=== PATIENT | male | born 1960 | race African-American/Black ===

== ENCOUNTER 2016-08-14 17:50 | Emergency (ER) | payer OTHER ==
[~2016-08-14] VITALS: Ht 188 cm; Wt 83.9 kg
[~2016-08-14 17:50] MED LIST: PERMETHRIN60 GM TOPIC
[2016-08-14 17:59] VITALS: BP 106/74
[2016-08-14] MEDS ORDERED: Lidocaine 1% 10mg/ml/Epi 0.005mg/ml 30ml vial INJ ONE (18:30)
[2016-08-14] MEDS ORDERED: Lidocaine 1% Plain 30 ml INJ ONE (18:30)
[2016-08-14 19:59] VITALS: BP 112/78
[2016-08-14] MEDS ORDERED: Bacitracin Oint UD TOPIC ONE (20:30)
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
[2016-08-14] MEDS ORDERED: BACITRACIN-P28.35 GM TP (20:42)
[2016-08-14] MEDS ORDERED: CEPHALEXIN500 MG ORAL (20:42)
[2016-08-14 21:30] VITALS: BP 137/75
--- NOTE | 2016-08-15 09:46 | Diagnostic Imaging Report ---
Indications: Right elbow pain Technique: 3 views right elbow. Findings: Comparison: None Soft tissues over the dorsum of the proximal ulna are swollen with gas filled linear defects. No fracture, dislocation, joint space widening or effusion , soft tissue foreign body, or other acute changes are identified. IMPRESSION: Dorsal soft tissue laceration No other evidence of acute injury.
== END 2016-08-14 21:30 | disposition home or self-care (01) ==
LOC: EDBD 17:50 → EMR 18:33
DX: S51.012A Laceration without foreign body of left elbow, initial encounter (principal); X58.XXXA Exposure to other specified factors, initial encounter; Y93.9 Activity, unspecified; Y92.811 Bus as the place of occurrence of the external cause; M25.521 Pain in right elbow; Z88.0 Allergy status to penicillin; Z88.8 Allergy status to other drugs, medicaments and biological substances; J44.9 Chronic obstructive pulmonary disease, unspecified; E11.9 Type 2 diabetes mellitus without complications
CPT/HCPCS: 12002; 29125; 29240; 73080; 99284; Z7502

== ENCOUNTER 2016-08-28 08:48 | Emergency (ER) | payer OTHER ==
[~2016-08-28] VITALS: Ht 185.4 cm; Wt 81.6 kg
[~2016-08-28 08:48] MED LIST changes: +BACITRACIN-P28.35 GM TP; +CEPHALEXIN500 MG ORAL
[2016-08-28] MEDS ORDERED: PERMETHRIN60 GM TOPIC (09:40)
[2016-08-28] MEDS ORDERED: BACTRIM DS TAB1 EAC1 ORAL (09:40)
--- NOTE | 2016-08-28 09:59 | Emergency Room Report ---
History of Present Illness General Chief Complaint: Wound Recheck/Suture Removal Source: Patient Present Illness HPI [id number] walk-in with request for staple removal, concern for infection to right elbow. Fever/chills recently. Swelling of elbow. Denies pus drainage. Also c/ o rash to upper/lower extremities, torso, back after "friend gave me a blanket recently." Took all the Abx was given after discharge from here 2 weeks prior Had 22 chiara placed per EMR Allergies: Coded Allergies: TETRACYCLINE (Verified Allergy, Unknown, 01/16/16) Uncoded Allergies: PENECILLIN (Allergy, Unknown, 01/16/16) Patient History Past Medical History: see triage record, old chart reviewed Past Surgical History: none Pertinent Family History: none Social History: Denies: alcohol use, drug use, smoking Immunizations: UTD Reviewed Nursing Documentation: PMH: Agreed, PSxH: Agreed Nursing Documentation-PMH Past Medical History: No History, Except For Hx COPD: Yes Hx Diabetes: Yes Review of Systems All Other Systems: negative except mentioned in HPI Physical Exam Vital Signs Date Time Temp Pulse Resp B/P Pulse Ox O2 Delivery O2 Flow Rate FiO2 08/28/16 08:55 98.1 64 16 145/83 99 Sp02 EP Interpretation: reviewed, normal General Appearance: normal inspection, well appearing, no apparent distress, alert, GCS 15, non-toxic Head: normocephalic, atraumatic Eyes: bilateral eye EOMI, bilateral eye PERRL ENT: normal ENT inspection, hearing grossly normal, normal voice Neck: normal inspection, full range of motion, supple, no bony tend Respiratory: normal inspection, lungs clear, normal breath sounds, no respiratory distress, no retraction, no wheezing Cardiovascular #1: regular rate, rhythm, no edema Gastrointestinal: normal inspection, normal bowel sounds, non tender, soft, no guarding, no hernia Genitourinary: no CVA tenderness Musculoskeletal: normal inspection, back normal, normal range of motion, Pauline' s Sign negative, other - Right elbow: 19 chiara visualized. V-shaped laceration in various stages of healing. Posterior aspect with only minor superficial wound dehiscence. Proximal and middle aspect over the joint with significant dehiscence. No pus drainage. Minor ttp. Medial aspect of elbow with swelling. Neurologic: normal inspection, alert, oriented x3, responsive, negative assembler III-XII nml as tested, motor strength/tone normal, speech normal Psychiatric: normal inspection, judgement/insight normal, mood/affect normal Skin: normal inspection, normal color, no rash, other - multiple areas of papules, some clustered to bilateral extremities, back, chest. No blisters or vesicles. Procedures Splinting Splinting : Consent: Verbal Pre-Made Type: velcro Hand-Made Type: plaster Splint: Posterior long right elbow Pre-Proc Neuro Vasc Exam: normal Post-Proc Neuro Vasc Exam: normal Patient Tolerated: Well Complications: None Medical Decision Making Diagnostic Impression: Primary Impression: Encounter for post-traumatic wound check Additional Impression: Scabies ER Course 19 chiara removed Dermabond placed for superficial closure Area covered with bandage Rx Bactrim given continued swelling of left elbow and chills at home Immobilizing elbow joint splint placed - posterior arm Advised return in 1 week for wound check Rx Elemite for scabies Last Vital Signs Date Time Temp Pulse Resp B/P Pulse Ox O2 Delivery O2 Flow Rate FiO2 08/28/16 08:55 98.1 64 16 145/83 99 Status: improved Disposition: HOME, SELF-CARE Condition: Improved Scripts Permethrin* (ELIMITE*) 60 Gm Cream..g. 1 APPLIC TOPIC ONCE, #60 GM 0 Refills Apply cream from head to toe; leave on for 8-14 hours before washing off with water; may reapply in 1 week if live mites appear. Prov: PLACIDO WILLETT M.D. 08/28/16 Trimethoprim/Sulfamethoxazole 160/800* (BACTRIM DS TABLET*) 1 Each Tablet 1 TAB ORAL Q12H for 7 Days, #14 TAB 0 Refills Prov: PLACIDO WILLETT M.D. 08/28/16 Referrals: [employer]EE [employer],REFERRIN (PCP) Patient Instructions: Wound Check Additional Instructions: Right elbow - Take ALL antibiotics until finished - Keep elbow wound clean/dry - change dressing daily. Scabies - Apply cream head to toe once before bed then shower off in morning PLACIDO WILLETT M.D. Aug 28, 2016 09:59
[2016-08-28 10:22] VITALS: BP 138/78
== END 2016-08-28 10:28 | disposition home or self-care (01) ==
LOC: EMR 09:31
DX: B86 Scabies (principal); Z88.8 Allergy status to other drugs, medicaments and biological substances; Z88.0 Allergy status to penicillin; E11.9 Type 2 diabetes mellitus without complications; J44.9 Chronic obstructive pulmonary disease, unspecified; S51.011D Laceration without foreign body of right elbow, subsequent encounter; X58.XXXD Exposure to other specified factors, subsequent encounter; Y92.9 Unspecified place or not applicable
CPT/HCPCS: 99284

== ENCOUNTER 2018-09-09 10:33 | Emergency (ER) | payer MEDICAID, OTHER ==
[~2018-09-09] VITALS: Ht 185.4 cm; Wt 81.6 kg
[~2018-09-09 10:33] MED LIST changes: +BACTRIM DS TAB1 EAC1 ORAL
[2018-09-09] MEDS ORDERED: OMEPRAZOLE10 M1 ORAL (10:58)
[2018-09-09] MEDS ORDERED: AMLODIPINE BES2.5 MG ORAL (10:58)
[2018-09-09] MEDS ORDERED: GABAPENTIN100 MG ORAL (10:58)
[2018-09-09] MEDS ORDERED: HYDROCHLOROTH12.5 M2 ORAL (10:58)
[2018-09-09] MEDS ORDERED: IBUPROFEN600 MG ORAL (10:58)
[2018-09-09] MEDS ORDERED: TRAMADOL HCL50 MG ORAL (10:58)
[2018-09-09 11:06] VITALS: BP 128/79
--- NOTE | 2018-09-09 11:10 | NUR ---
ED Nurse Note: pt walked in to ER c/o abdominal pain 8/10 started in July but worsening today. pt aao x4 and ambulatory. skin clean and intact. calm and cooperative. denied N/V/D or constipation. pt is in gown and security monitor.
--- NOTE | 2018-09-09 11:27 | NUR ---
ED Nurse Note: ERMD at bedside assessing the patient.
[2018-09-09] MEDS ORDERED: Morphine Sulfate 4mg/ml Inj (IV USE ONLY) IVP ONE (11:30)
[2018-09-09] MEDS ORDERED: Isovue-300 100ml vial INJ PRN (11:30)
--- NOTE | 2018-09-09 11:36 | Emergency Room Report ---
History of Present Illness General Chief Complaint: Abdominal Pain Source: Patient Present Illness HPI 58-year-old male, past history of hernia, presents with intra-abdominal fullness , generalized pain, no nausea no vomiting, any aggravating or alleviating factors, patient felt like there was a mass growing in his belly, patient presents to the emergency room to make sure there is no acute issues, patient states he is passing gas without issues. Patient denies any fevers chills chest pain shortness of breath Allergies: Coded Allergies: PENICILLINS (Verified Allergy, Unknown, 09/09/18) TETRACYCLINE (Verified Allergy, Unknown, 01/16/16) Patient History Past Medical History: see triage record Reviewed Nursing Documentation: PMH: Agreed; PSxH: Agreed Nursing Documentation-PMH Past Medical History: No History, Except For Hx Hypertension: Yes Hx COPD: Yes Hx Diabetes: Yes Hx Gastrointestinal Problems: Yes - diverticulitis Hx Neurological Problems: Yes - neuropathy Review of Systems Constitutional: Denies: chills, fever Eye: Denies: blurred vision, double vision ENT: Denies: throat pain, nasal discharge Respiratory: Denies: cough, shortness of breath Cardiovascular: Denies: chest pain, palpitations Gastrointestinal: Reports: abdominal pain; Denies: constipation, diarrhea, nausea, vomiting Genitourinary: Denies: pain Musculoskeletal: Denies: back pain, muscle pain Skin: Denies: rash, lesions Neurological: Denies: headache, focal weakness Hematologic/Lymphatic: Denies: easy bleeding, easy bruising All Other Systems: negative except mentioned in HPI Physical Exam Vital Signs Date Time Temp Pulse Resp B/P (MAP) Pulse Ox O2 Delivery O2 Flow Rate FiO2 09/09/18 10:49 98.2 58 20 124/83 (97) 98 Room Air Sp02 EP Interpretation: reviewed, normal General Appearance: well appearing, no apparent distress, alert Head: normocephalic, atraumatic Eyes: bilateral eye PERRL, bilateral eye EOMI ENT: uvula midline, moist mucus membranes Neck: supple, thyroid normal, supple/symm/no masses Respiratory: lungs clear, no respiratory distress, no retraction, no accessory muscle use Cardiovascular #1: normal peripheral pulses, regular rate, rhythm, no edema, no gallop, no murmur Gastrointestinal: non tender, soft, no guarding, no rebound, other - Fullness on exam Musculoskeletal: normal inspection Neurologic: alert, oriented x3 Psychiatric: mood/affect normal Skin: no rash, warm/dry Medical Decision Making Diagnostic Impression: Primary Impression: Ventral hernia ER Course Patient with intra-abdominal fullness, rule out appendicitis, rule out SBO, patient found to have a ventral hernia, no acute intra-abdominal processes, labs show no focal findings, patient reassured, return precautions discussed, follow-up with PCP Laboratory Tests Test 09/09/18 11:10 09/09/18 11:49 White Blood Count 6.7 K/UL (4.8-10.8) Red Blood Count 4.62 M/UL (4.70-6.10) L Hemoglobin 12.9 G/DL (14.2-18.0) L Hematocrit 41.2 % (42.0-52.0) L Mean Corpuscular Volume 89 FL (80-99) Mean Corpuscular Hemoglobin 27.9 PG (27.0-31.0) Mean Corpuscular Hemoglobin Concent 31.3 G/DL (32.0-36.0) L Red Cell Distribution Width 13.9 % (11.6-14.8) Platelet Count 289 K/UL (150-450) Mean Platelet Volume 5.5 FL (6.5-10.1) L Neutrophils (%) (Auto) 49.3 % (45.0-75.0) Lymphocytes (%) (Auto) 36.8 % (20.0-45.0) Monocytes (%) (Auto) 6.9 % (1.0-10.0) Eosinophils (%) (Auto) 5.2 % (0.0-3.0) H Basophils (%) (Auto) 1.7 % (0.0-2.0) Sodium Level 140 MMOL/L (136-145) Potassium Level 4.0 MMOL/L (3.5-5.1) Chloride Level 103 MMOL/L (98-107) Carbon Dioxide Level 30 MMOL/L (21-32) Anion Gap 7 mmol/L (5-15) Blood Urea Nitrogen 15 mg/dL (7-18) Creatinine 1.4 MG/DL (0.55-1.30) H Estimate Glomerular Filtration Rate > 60 mL/min (>60) Glucose Level 92 MG/DL (74-106) Calcium Level 9.2 MG/DL (8.5-10.1) Total Bilirubin 0.3 MG/DL (0.2-1.0) Aspartate Amino Transferase (AST) 24 U/L (15-37) Alanine Aminotransferase (ALT) 19 U/L (12-78) Alkaline Phosphatase 76 U/L (46-116) Total Protein 7.8 G/DL (6.4-8.2) Albumin 3.7 G/DL (3.4-5.0) Globulin 4.1 g/dL Albumin/Globulin Ratio 0.9 (1.0-2.7) L Lipase 142 U/L (73-393) Urine Color Pale yellow Urine Appearance Clear Urine pH 7 (4.5-8.0) Urine Specific [place] 1.005 (1.005-1.035) Urine Protein Negative (NEGATIVE) Urine Glucose (UA) Negative (NEGATIVE) Urine Ketones Negative (NEGATIVE) Urine Blood Negative (NEGATIVE) Urine Nitrite Negative (NEGATIVE) Urine Bilirubin Negative (NEGATIVE) Urine Urobilinogen Normal MG/DL (0.0-1.0) Urine Leukocyte Esterase Negative (NEGATIVE) EKG Diagnostic Results EKG Time: 11:38 EP Interpretation: sinus bradycardia, rate 49, qtc 408, no acute st elevations Rate: bradycardiac Rhythm: NSR ST Segments: no acute changes CT/MRI/US Diagnostic Results CT/MRI/US Diagnostic Results : Impression Procedure: CT Abdomen Pelvis w/Contrast Clinical Indication: Abdominal pain Technique: No oral contrast utilized, per emergency room physician request IV administration nonionic contrast. Venous phase spiral acquisition obtained through the abdomen and pelvis. Multiplanar reconstructions were generated. Total dose length product 597.41 mGycm. CTDIvol(s) 11.32 mGy. Dose reduction achieved using automated exposure control Comparison: none Findings: Lack of enteric contrast limits assessment of the GI tract. The appendix is normal. There is no evidence of diverticulosis or diverticulitis. The transverse , descending, and sigmoid colon as well as rectum are prominent, gas-filled, but not frankly dilated. Small bowel loops are nondilated. There is a moderate to large hiatal hernia demonstrated. The duodenum is unremarkable. No free or loculated intraperitoneal gas or fluid is evident. The gallbladder, liver, bile ducts, pancreas, spleen, adrenals, kidneys are all unremarkable. No renal or ureteral calculi, hydronephrosis, or hydroureter. No pelvic mass or adenopathy. No retroperitoneal or mesenteric mass or adenopathy. The included lung bases demonstrate some compressive atelectatic changes on the left. The bones demonstrate thoracolumbar dextroscoliotic deformity. There are degenerative changes of the lumbar spine. Impression: Limited assessment of the GI tract, due to lack of enteric contrast administration No definite acute abnormality Moderate to large hiatal hernia Other findings as noted, including left basilar pulmonary atelectatic changes, thoracolumbar dextroscoliotic deformity The CT scanner at [facility] is accredited by the [employer] and the scans are performed using protocols designed to limit radiation exposure to as low as reasonably achievable to attain images of sufficient resolution adequate for diagnostic evaluation. Dictated By: Pranay Thorpe MD Electronically Signed By: Pranay Thorpe MD Signed Date/Time 09/09/18 1344 CC: Cisco Castillo M.D. Last Vital Signs Date Time Temp Pulse Resp B/P (MAP) Pulse Ox O2 Delivery O2 Flow Rate FiO2 09/09/18 11:06 98.2 52 20 128/79 98 Room Air Disposition: HOME, SELF-CARE Condition: Improved Cisco Castillo M.D. Sep 09, 2018 11:36
[2018-09-09 11:55] LABS: APPEARANCE,URINE CLEAR; BILIRUBIN, URINE NEGATIVE (NEGATIVE); COLOR,URINE PALE YELLOW; GLUCOSE, URINE (UA) NEGATIVE (NEGATIVE); KETONES,URINE NEGATIVE (NEGATIVE); LEUKOCYTE ESTERASE ,URINE NEGATIVE (NEGATIVE); NITRITE,URINE NEGATIVE (NEGATIVE); PH,URINE 7 (4.5-8.0); PROTEIN,URINE NEGATIVE (NEGATIVE); UROBILINOGEN,URINE NORMAL MG/DL (0.0-1.0)
[2018-09-09 11:55] LABS: BASOPHILS % (AUTO) 1.7 % (0.0-2.0); EOSINOPHILS % (AUTO) 5.2 % (0.0-3.0); HEMATOCRIT 41.2 % (42.0-52.0); HEMOGLOBIN 12.9 G/DL (14.2-18.0); LYMPHOCYTES % (AUTO) 36.8 % (20.0-45.0); MEAN CORPUSCULAR VOLUME 89 FL (80-99); MONOCYTES % (AUTO) 6.9 % (1.0-10.0); NEUTROPHILS % (AUTO) 49.3 % (45.0-75.0); PLATELET COUNT 289 K/UL (150-450); RED BLOOD COUNT 4.62 M/UL (4.70-6.10); RED CELL DISTRIBUTION WIDTH 13.9 % (11.6-14.8); WHITE BLOOD COUNT 6.7 K/UL (4.8-10.8)
[2018-09-09 12:00] LABS: ANION GAP 7 mmol/L (5-15); BLOOD UREA NITROGEN 15 mg/dL (7-18); CALCIUM 9.2 MG/DL (8.5-10.1); CARBON DIOXIDE 30 MMOL/L (21-32); CHLORIDE 103 MMOL/L (98-107); CREATININE 1.4 MG/DL (0.55-1.30); SODIUM 140 MMOL/L (136-145)
[2018-09-09 12:05] LABS: ALANINE AMINOTRANSFERASE 19 U/L (12-78); ALBUMIN 3.7 G/DL (3.4-5.0); ALBUMIN/GLOBULIN RATIO 0.9 (1.0-2.7); ALKALINE PHOSPHATASE 76 U/L (46-116); ASPARTATE AMINO TRANSFERASE 24 U/L (15-37); BILIRUBIN,TOTAL 0.3 MG/DL (0.2-1.0)
--- NOTE | 2018-09-09 12:43 | NUR ---
ED Nurse Note: pt went down for CT with tech in stable condition and consent.
--- NOTE | 2018-09-09 13:49 | Diagnostic Imaging Report ---
Clinical Indication: Abdominal pain Technique: No oral contrast utilized, per emergency room physician request IV administration nonionic contrast. Venous phase spiral acquisition obtained through the abdomen and pelvis. Multiplanar reconstructions were generated. Total dose length product 597.41 mGycm. CTDIvol(s) 11.32 mGy. Dose reduction achieved using automated exposure control Comparison: none Findings: Lack of enteric contrast limits assessment of the GI tract. The appendix is normal. There is no evidence of diverticulosis or diverticulitis. The transverse, descending, and sigmoid colon as well as rectum are prominent, gas-filled, but not frankly dilated. Small bowel loops are nondilated. There is a moderate to large hiatal hernia demonstrated. The duodenum is unremarkable. No free or loculated intraperitoneal gas or fluid is evident. The gallbladder, liver, bile ducts, pancreas, spleen, adrenals, kidneys are all unremarkable. No renal or ureteral calculi, hydronephrosis, or hydroureter. No pelvic mass or adenopathy. No retroperitoneal or mesenteric mass or adenopathy. The included lung bases demonstrate some compressive atelectatic changes on the left. The bones demonstrate thoracolumbar dextroscoliotic deformity. There are degenerative changes of the lumbar spine. Impression: Limited assessment of the GI tract, due to lack of enteric contrast administration No definite acute abnormality Moderate to large hiatal hernia Other findings as noted, including left basilar pulmonary atelectatic changes, thoracolumbar dextroscoliotic deformity The CT scanner at [facility] is accredited by the [employer] and the scans are performed using protocols designed to limit radiation exposure to as low as reasonably achievable to attain images of sufficient resolution adequate for diagnostic evaluation.
--- NOTE | 2018-09-09 14:00 | NUR ---
ED Nurse Note: ERMD at bedside.
[2018-09-09 14:40] VITALS: BP 133/82
--- NOTE | 2018-09-09 14:40 | NUR ---
ER DISCHARGE NOTE: Patient is cleared to be discharged per ERMD, pt is aox4, on room air, with stable vital signs. pt was given dc instructions, pt was able to verbalize understanding, pt id band and iv site removed without complications. pt is able to ambulate with steady gait. pt took all belongings.
--- NOTE | 2018-09-11 16:05 | Cardiology Report ---
APPROVED REPORT EKG Measurement Heart [id number] Sinus bradycardia Otherwise normal ECG
== END 2018-09-09 14:40 | disposition home or self-care (01) ==
LOC: EMR 11:36
DX: K43.9 Ventral hernia without obstruction or gangrene (principal); I10 Essential (primary) hypertension; E11.9 Type 2 diabetes mellitus without complications; J44.9 Chronic obstructive pulmonary disease, unspecified; G62.9 Polyneuropathy, unspecified; K44.9 Diaphragmatic hernia without obstruction or gangrene
CPT/HCPCS: 36415; 74177; 80053; 81003; 83690; 85025; 93005; 96361; 96374; 96375; 99284; J2270; J2405; Q9967; S0028

== ENCOUNTER 2018-10-14 10:21 | Inpatient (IN) | payer MEDICAID ==
[~2018-10-14] VITALS: Ht 185.4 cm; Wt 81.6 kg
[~2018-10-14 10:21] MED LIST changes: +AMLODIPINE BES2.5 MG ORAL; +GABAPENTIN100 MG ORAL; +HYDROCHLOROTH12.5 M2 ORAL; +IBUPROFEN600 MG ORAL; +OMEPRAZOLE10 M1 ORAL; +TRAMADOL HCL50 MG ORAL
[2018-10-14 10:35] VITALS: BP 118/79
--- NOTE | 2018-10-14 10:35 | NUR ---
ED Nurse Note: PT WALKED IN TO ER TODAY FROM HOME. AOX4. PT C/O LEFT SIDED CHEST PAIN, 11/10 RADIATING DOWN LEFT ARM "LIKE THERE'S A RUBBER BAND AROUND MY ARM" X 2 DAYS AGO. PT ALSO C/O UPPER MEDIAL ABDOMINAL PAIN X 2 DAYS AGO. PT DENIES NAUSEA OR VOMITING. PT STATES LAST BM WAS YESTERDAY WHICH WAS LIQUID BUT PT STATES HE IS ON LAXATIVES IN PREPARATION FOR SCHEDULED COLONOSCOPY. PT STATES HE WAS DX'D WITH ABDOMINAL HERNIA 09/09/18.
--- NOTE | 2018-10-14 10:36 | NUR ---
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 DR GARCIA AWARE.
[2018-10-14] MEDS ORDERED: Nitroglycerin 2% oint pkt TOPIC ONE (10:45)
[2018-10-14] MEDS ORDERED: Nitroglycerin Subl 0.4mg tab SL PRN (10:45)
[2018-10-14] MEDS ORDERED: Morphine Sulfate 2mg/ml Inj(IV/IM USE ONLY) IVP ONE (10:45)
[2018-10-14] MEDS ORDERED: Aspirin Baby 81mg ORAL ONE (10:45)
[2018-10-14 11:11] LABS: APPEARANCE,URINE CLEAR; BILIRUBIN, URINE NEGATIVE (NEGATIVE); COLOR,URINE PALE YELLOW; GLUCOSE, URINE (UA) NEGATIVE (NEGATIVE); KETONES,URINE NEGATIVE (NEGATIVE); LEUKOCYTE ESTERASE ,URINE 1+ (NEGATIVE); NITRITE,URINE NEGATIVE (NEGATIVE); PH,URINE 7 (4.5-8.0); PROTEIN,URINE NEGATIVE (NEGATIVE); UROBILINOGEN,URINE NORMAL MG/DL (0.0-1.0)
[2018-10-14 11:14] LABS: BASOPHILS % (AUTO) 1.8 % (0.0-2.0); EOSINOPHILS % (AUTO) 4.8 % (0.0-3.0); HEMATOCRIT 42.5 % (42.0-52.0); HEMOGLOBIN 13.7 G/DL (14.2-18.0); LYMPHOCYTES % (AUTO) 39.8 % (20.0-45.0); MEAN CORPUSCULAR VOLUME 88 FL (80-99); MONOCYTES % (AUTO) 6.5 % (1.0-10.0); NEUTROPHILS % (AUTO) 47.1 % (45.0-75.0); PLATELET COUNT 286 K/UL (150-450); RED BLOOD COUNT 4.81 M/UL (4.70-6.10); RED CELL DISTRIBUTION WIDTH 14.3 % (11.6-14.8); WHITE BLOOD COUNT 5.9 K/UL (4.8-10.8)
[2018-10-14 11:21] LABS: ANION GAP 6 mmol/L (5-15); BLOOD UREA NITROGEN 17 mg/dL (7-18); CARBON DIOXIDE 31 MMOL/L (21-32); CHLORIDE 99 MMOL/L (98-107); CREATININE 1.4 MG/DL (0.55-1.30); POTASSIUM 3.9 MMOL/L (3.5-5.1); SODIUM 136 MMOL/L (136-145)
[2018-10-14 11:25] LABS: INR 0.9 (0.9-1.1)
--- NOTE | 2018-10-14 11:32 | NUR ---
ED Nurse Note: XRAY AT BEDSIDE.
[2018-10-14 11:33] LABS: ALANINE AMINOTRANSFERASE 22 U/L (12-78); ALBUMIN 4.1 G/DL (3.4-5.0); ALKALINE PHOSPHATASE 83 U/L (46-116); ASPARTATE AMINO TRANSFERASE 28 U/L (15-37); BILIRUBIN,TOTAL 0.4 MG/DL (0.2-1.0); CREATINE KINASE 442 U/L (26-308)
--- NOTE | 2018-10-14 11:35 | Emergency Room Report ---
History of Present Illness General Chief Complaint: Chest Pain Source: Patient Present Illness HPI Chest pain. He states is exertional and somewhat positional. He says it is began 3 days ago been fairly constant. Worsened today. Patient is hypertension and smokes cigarettes. He denies doing drugs. The pain radiates down his left arm. Went severe at 9/10. He denies fevers or cough. Denies headache. He denies taking any medication to treat this. He denies prior cardiac work-up. Cardiac risk factors: Hypertension, smoking. The patient does not know his last for all. Denies family history. Although he denies diabetes or medication for this his past medical history reveals diabetes. He was evaluated last month for ventral hernia and abdominal pain. He is wondering whether this might be related to that problem. This is a completely different area of pain. No chills, sore throat, palpitations, nausea, vomiting, diarrhea, dysuria, joint pain, rashes, depression, anxiety, visual changes, headache. Allergies: Coded Allergies: PENICILLINS (Verified Allergy, Unknown, 09/09/18) TETRACYCLINE (Verified Allergy, Unknown, 01/16/16) Patient History Past Medical History: see triage record Social History: Reports: smoking, alcohol use, drug use - Patient denied but C tox screen Social History Narrative From home Reviewed Nursing Documentation: PMH: Agreed; PSxH: Agreed Nursing Documentation-PMH Hx Hypertension: Yes Hx COPD: Yes Hx Diabetes: Yes Hx Gastrointestinal Problems: Yes - diverticulitis Hx Neurological Problems: Yes - neuropathy Review of Systems All Other Systems: negative except mentioned in HPI Physical Exam Vital Signs Date Time Temp Pulse Resp B/P (MAP) Pulse Ox O2 Delivery O2 Flow Rate FiO2 10/14/18 10:29 97.7 64 16 112/82 (92) 93 Room Air Sp02 EP Interpretation: reviewed, normal - Interpreted as slightly low by me General Appearance: well appearing, no apparent distress, GCS 15 Head: normocephalic, atraumatic Eyes: bilateral eye normal inspection, bilateral eye PERRL, bilateral eye EOMI ENT: moist mucus membranes Neck: supple Respiratory: chest non-tender, lungs clear, normal breath sounds Cardiovascular #1: no edema, bradycardia Cardiovascular #2: 2+ radial (R) Gastrointestinal: normal inspection, normal bowel sounds, non tender, no mass, non-distended Musculoskeletal: back normal, gait/station normal, normal range of motion, no calf tenderness, Pauline's Sign negative Neurologic: alert, oriented x3, grossly normal Psychiatric: mood/affect normal Skin: no rash Medical Decision Making Diagnostic Impression: Primary Impression: Chest pain Qualified Codes: R07.9 - Chest pain, unspecified Additional Impressions: Bradycardia Cocaine abuse ER Course Patient presents with left-sided exertional chest pain with several cardiac risk factors. Differential includes acute myocardial infarction, acute coronary syndrome, pulmonary embolus, chest wall strain, costochondritis amongst others. Patient will be evaluated with EKG, chest x-ray and labs. Patient will be given aspirin, nitroglycerin, glycerin paste, Zofran and morphine. The patient's bradycardia is disconcerting. Patient is not taking a beta-jerzy at this time. EKG with bradycardia and ectopy without acute injury. Chest x-ray no infiltrates. Labs significant for initial troponin being negative and positive cocaine and tox screen. Patient still has pain but says that the nitroglycerin helps. He says the pain is 7/10 at this time. He only received 1 dose of nitroglycerin. 2 more doses are going to be given. Negative. Patient received a half aspirin in the emergency department. Due to the bradycardia we cannot give metoprolol. As the cocaine screen is positive but this is most likely related to his chest pain. Patient needs observation in telemetry. Patient is further improved with more nitrates and treatment of analgesia. Is not dizzy and blood pressure is maintained with treatment. Continues to have sinus bradycardia with occasional ectopy. Patient admitted to telemetry observation. Laboratory Tests Test 10/14/18 11:00 White Blood Count 5.9 K/UL (4.8-10.8) Red Blood Count 4.81 M/UL (4.70-6.10) Hemoglobin 13.7 G/DL (14.2-18.0) L Hematocrit 42.5 % (42.0-52.0) Mean Corpuscular Volume 88 FL (80-99) Mean Corpuscular Hemoglobin 28.5 PG (27.0-31.0) Mean Corpuscular Hemoglobin Concent 32.2 G/DL (32.0-36.0) Red Cell Distribution Width 14.3 % (11.6-14.8) Platelet Count 286 K/UL (150-450) Mean Platelet Volume 5.6 FL (6.5-10.1) L Neutrophils (%) (Auto) 47.1 % (45.0-75.0) Lymphocytes (%) (Auto) 39.8 % (20.0-45.0) Monocytes (%) (Auto) 6.5 % (1.0-10.0) Eosinophils (%) (Auto) 4.8 % (0.0-3.0) H Basophils (%) (Auto) 1.8 % (0.0-2.0) Prothrombin Time 9.7 SEC (9.30-11.50) Prothrombin Time INR 0.9 (0.9-1.1) PTT 27 SEC (23-33) Urine Color Pale yellow Urine Appearance Clear Urine pH 7 (4.5-8.0) Urine Specific [place] 1.005 (1.005-1.035) Urine Protein Negative (NEGATIVE) Urine Glucose (UA) Negative (NEGATIVE) Urine Ketones Negative (NEGATIVE) Urine Blood Negative (NEGATIVE) Urine Nitrite Negative (NEGATIVE) Urine Bilirubin Negative (NEGATIVE) Urine Urobilinogen Normal MG/DL (0.0-1.0) Urine Leukocyte Esterase 1+ (NEGATIVE) H Urine RBC 0-2 /HPF (0 - 0) H Urine WBC 0-2 /HPF (0 - 0) Urine Squamous Epithelial Cells Occasional /LPF Urine Bacteria Occasional /HPF (NONE) Sodium Level 136 MMOL/L (136-145) Potassium Level 3.9 MMOL/L (3.5-5.1) Chloride Level 99 MMOL/L (98-107) Carbon Dioxide Level 31 MMOL/L (21-32) Anion Gap 6 mmol/L (5-15) Blood Urea Nitrogen 17 mg/dL (7-18) Creatinine 1.4 MG/DL (0.55-1.30) H Estimate Glomerular Filtration Rate > 60 mL/min (>60) Glucose Level 88 MG/DL (74-106) Calcium Level 9.0 MG/DL (8.5-10.1) Total Bilirubin 0.4 MG/DL (0.2-1.0) Aspartate Amino Transferase (AST) 28 U/L (15-37) Alanine Aminotransferase (ALT) 22 U/L (12-78) Alkaline Phosphatase 83 U/L (46-116) Total Creatine Kinase 442 U/L (26-308) H Troponin I 0.000 ng/mL (0.000-0.056) Pro-B-Type Natriuretic Peptide 55 pg/mL (0-125) Total Protein 8.3 G/DL (6.4-8.2) H Albumin 4.1 G/DL (3.4-5.0) Globulin 4.2 g/dL Albumin/Globulin Ratio 1.0 (1.0-2.7) Lipase 141 U/L (73-393) Urine Opiates Screen Negative (NEGATIVE) Urine Barbiturates Screen Negative (NEGATIVE) Phencyclidine (PCP) Screen Negative (NEGATIVE) Urine Amphetamines Screen Negative (NEGATIVE) Urine Benzodiazepines Screen Negative (NEGATIVE) Urine Cocaine Screen Positive (NEGATIVE) H Urine Marijuana (THC) Screen Negative (NEGATIVE) EKG Diagnostic Results Rate: bradycardiac Rhythm: NSR ST Segments: no acute changes - PVC Rhythm Strip Diag. Results EP Interpretation: yes Rhythm: other - Bradycardia rate 53 PVC Chest X-Ray Diagnostic Results Chest X-Ray Diagnostic Results : Chest X-Ray Ordered: Yes # of Views/Limited/Complete: 1 View Indication: Chest Pain Interpretation: no consolidation, no effusion, no pneumothorax Impression: No acute disease Electronically Signed by: Electronically signed by Rocky Juan MD Last Vital Signs Date Time Temp Pulse Resp B/P (MAP) Pulse Ox O2 Delivery O2 Flow Rate FiO2 10/14/18 16:05 Room Air 10/14/18 16:00 97.0 52 21 107/78 (88) 100 Status: improved Disposition: PLACE IN OBSERVATION Condition: Serious Referrals: NON PHYSICIAN (PCP) Rocky Juan MD Oct 14, 2018 11:35
--- NOTE | 2018-10-14 11:58 | Diagnostic Imaging Report ---
Indication: Chest pain Comparison: None A single view chest radiograph was obtained. Findings: Cardiomediastinal appearance is within normal limits for age. The lungs are clear. Pulmonary vascularity is appropriate. The diaphragmatic contour is smooth and costophrenic angles are sharp. No pleural effusions are identified. The bones are unremarkable. Impression: No acute findings
--- NOTE | 2018-10-14 12:08 | NUR ---
ED Nurse Note: TELE UNIT CALLED FOR PT REPORT. REPORT GIVEN TO LUMA HANLEY. RN READY TO ACCEPT PT. PT TAKEN UP TO TELE UNIT VIA GURNEY ON COVER SEAMER WITH ALL BELONGINGS ACCOMPANIED BY PRIMARY RN AND SE RUTH RN.
[2018-10-14] MEDS ORDERED: Metoprolol 5mg/5ml Inj IVP STA (12:11)
[2018-10-14] MEDS ORDERED: Morphine Sulfate 4mg/ml Inj (IV USE ONLY) IVP ONE (12:15)
--- NOTE | 2018-10-14 12:15 | NUR ---
NURSE NOTES: Received patient from ED. Transferred to cardiac bed. On room air, no respiratory distress. NO facial grimace noted. Ramirez light within reach. Will admit to telemetry standard level of care.
[2018-10-14 12:20] VITALS: BP 109/77
--- NOTE | 2018-10-14 13:15 | NUR ---
NURSE NOTES: Dr. Newman said that patient is inpatient and not observation status.
[2018-10-14] MEDS: traMADol 50mg tab ORAL PRN (15:05)
[2018-10-14 16:00] VITALS: BP 107/78
--- NOTE | 2018-10-14 18:31 | Consultation ---
History of Present Illness General Reason for Hospitalization: Chest Pain Present Illness HPI This is a pleasant 58-year-old male with history of hypertension who presented to the emerge department [facility] complaining of acutely worsening chest pain for approximately 3 days. He was treated in the emergency department but admitted for care and management. During admission began to complain of abdominal discomfort. Denies any nausea or vomiting. States that after he has a bowel movement he feels a popping sensation in his abdomen and this is been ongoing for some time now. Patient states he prior had a right inguinal hernia that was repaired at [facility] in April 16 of this year. States he is been well from that since. States he was told he has a ventral hernia that needs repair and that with what he attributes his abdominal pain too. pain cramping left upper quadrant underneath his ribs as per patient. Surgery called to evaluate and assist with care. Patient seen, patient evaluated, chart reviewed Allergies: Coded Allergies: PENICILLINS (Verified Allergy, Unknown, 09/09/18) TETRACYCLINE (Verified Allergy, Unknown, 01/16/16) Medication History Scheduled Amlodipine Besylate* (Amlodipine Besylate*), MG ORAL DAILY, (Reported) Gabapentin* (Gabapentin*), MG ORAL THREE TIMES A DAY, (Reported) Hydrochlorothiazide* (Hydrochlorothiazide*), MG ORAL DAILY, (Reported) Ibuprofen* (Motrin*), MG ORAL FOUR TIMES A DAY, (Reported) Omeprazole (Omeprazole), MG ORAL DAILY, (Reported) Scheduled PRN Tramadol Hcl* (Ultram*), MG ORAL Q6H PRN for For Pain, (Reported) Patient History History Provided By: Patient, Medical Record, PMD Healthcare decision maker Resuscitation status Full Code Advanced Directive on File Past Medical/Surgical History Past Medical/Surgical History: (1) Abdominal pain (2) Acute alcoholic intoxication (3) Scabies (4) Encounter for post-traumatic wound check (5) Cocaine abuse (6) Bradycardia (7) Chest pain Review of Systems Review of Symptoms General ROS: no weight loss or fever Psychological ROS: no depression or mood changes, no memory loss Ophthalmic ROS: no visual changes or eye irritation ENT ROS: no nasal congestion, hearing loss, dizziness Allergy and Immunology ROS: no allergic symptoms or urticaria Hematological and Lymphatic ROS: no swollen glands, unusual bleeding or bruising Endocrine ROS: no polyuria, polydipsia, weight changes, temperature intolerance Respiratory ROS: no cough, shortness of breath, or wheezing Cardiovascular ROS: no chest pain or dyspnea on exertion Gastrointestinal ROS: abdominal pain, no bright red blood in stool. Musculoskeletal ROS: no myalgias or arthralgias Neurological ROS: no TIA or stroke symptoms Dermatological ROS: no new or changing skin lesions, rashes or pruritis Physical Exam Physical Exam General appearance: alert, cooperative, no distress, appears stated age Head: Normocephalic, without obvious abnormality, atraumatic Eyes: conjunctivae/corneas clear. PERRL, EOM's intact. Fundi benign Throat: Lips, mucosa, and tongue normal. Teeth and gums normal Neck: supple, symmetrical, trachea midline, no adenopathy, thyroid: not enlarged, symmetric, no tenderness/mass/nodules, no carotid bruit and no JVD Lungs: clear to auscultation bilaterally Heart: regular rate and rhythm, S1, S2 normal, no murmur, click, rub or gallop Abdomen: soft, non-tender. Bowel sounds normal. No masses, no organomegaly Extremities: extremities normal, atraumatic, no cyanosis or edema Pulses: 2+ and symmetric Skin: Skin color, texture, turgor normal. No rashes or lesions Neurologic: Grossly normal Last 24 Hour Vital Signs Date Time Temp Pulse Resp B/P (MAP) Pulse Ox O2 Delivery O2 Flow Rate FiO2 10/14/18 16:05 Room Air 10/14/18 16:00 97.0 52 21 107/78 (88) 100 10/14/18 13:11 40 10/14/18 12:35 53 10/14/18 12:20 96.3 51 20 109/77 (88) 99 10/14/18 12:08 98.1 52 18 116/74 97 Room Air 10/14/18 11:16 118/79 10/14/18 11:15 118/79 10/14/18 10:35 98.0 47 19 118/79 98 Room Air 10/14/18 10:35 47 19 Room Air 10/14/18 10:29 97.7 64 16 112/82 (92) 93 Room Air Laboratory Tests Test 10/14/18 11:00 White Blood Count 5.9 K/UL (4.8-10.8) Red Blood Count 4.81 M/UL (4.70-6.10) Hemoglobin 13.7 G/DL (14.2-18.0) L Hematocrit 42.5 % (42.0-52.0) Mean Corpuscular Volume 88 FL (80-99) Mean Corpuscular Hemoglobin 28.5 PG (27.0-31.0) Mean Corpuscular Hemoglobin Concent 32.2 G/DL (32.0-36.0) Red Cell Distribution Width 14.3 % (11.6-14.8) Platelet Count 286 K/UL (150-450) Mean Platelet Volume 5.6 FL (6.5-10.1) L Neutrophils (%) (Auto) 47.1 % (45.0-75.0) Lymphocytes (%) (Auto) 39.8 % (20.0-45.0) Monocytes (%) (Auto) 6.5 % (1.0-10.0) Eosinophils (%) (Auto) 4.8 % (0.0-3.0) H Basophils (%) (Auto) 1.8 % (0.0-2.0) Prothrombin Time 9.7 SEC (9.30-11.50) Prothromb Time International Ratio 0.9 (0.9-1.1) Activated Partial Thromboplast Time 27 SEC (23-33) Urine Color Pale yellow Urine Appearance Clear Urine pH 7 (4.5-8.0) Urine Specific [place] 1.005 (1.005-1.035) Urine Protein Negative (NEGATIVE) Urine Glucose (UA) Negative (NEGATIVE) Urine Ketones Negative (NEGATIVE) Urine Blood Negative (NEGATIVE) Urine Nitrite Negative (NEGATIVE) Urine Bilirubin Negative (NEGATIVE) Urine Urobilinogen Normal MG/DL (0.0-1.0) Urine Leukocyte Esterase 1+ (NEGATIVE) H Urine RBC 0-2 /HPF (0 - 0) H Urine WBC 0-2 /HPF (0 - 0) Urine Squamous Epithelial Cells Occasional /LPF Urine Bacteria Occasional /HPF (NONE) Sodium Level 136 MMOL/L (136-145) Potassium Level 3.9 MMOL/L (3.5-5.1) Chloride Level 99 MMOL/L (98-107) Carbon Dioxide Level 31 MMOL/L (21-32) Anion Gap 6 mmol/L (5-15) Blood Urea Nitrogen 17 mg/dL (7-18) Creatinine 1.4 MG/DL (0.55-1.30) H Estimat Glomerular Filtration Rate > 60 mL/min (>60) Glucose Level 88 MG/DL (74-106) Calcium Level 9.0 MG/DL (8.5-10.1) Total Bilirubin 0.4 MG/DL (0.2-1.0) Aspartate Amino Transf (AST/SGOT) 28 U/L (15-37) Alanine Aminotransferase (ALT/SGPT) 22 U/L (12-78) Alkaline Phosphatase 83 U/L (46-116) Total Creatine Kinase 442 U/L (26-308) H Troponin I 0.000 ng/mL (0.000-0.056) Pro-B-Type Natriuretic Peptide 55 pg/mL (0-125) Total Protein 8.3 G/DL (6.4-8.2) H Albumin 4.1 G/DL (3.4-5.0) Globulin 4.2 g/dL Albumin/Globulin Ratio 1.0 (1.0-2.7) Lipase 141 U/L (73-393) Urine Opiates Screen Negative (NEGATIVE) Urine Barbiturates Screen Negative (NEGATIVE) Phencyclidine (PCP) Screen Negative (NEGATIVE) Urine Amphetamines Screen Negative (NEGATIVE) Urine Benzodiazepines Screen Negative (NEGATIVE) Urine Cocaine Screen Positive (NEGATIVE) H Urine Marijuana (THC) Screen Negative (NEGATIVE) Height (Feet): 6 Height (Inches): 1.00 Weight (Pounds): 180 Medications Current Medications Medications (Trade) Dose Ordered Sig/Mayda Route PRN Reason Start Time Stop Time Status Last Admin Dose Admin Amlodipine Besylate (Norvasc) 2.5 mg DAILY ORAL 10/15/18 09:00 11/14/18 08:59 Gabapentin (Neurontin) 600 mg THREE TIMES A DAY ORAL 10/14/18 18:00 11/13/18 17:59 10/14/18 18:09 Heparin Sodium (Porcine) (Heparin 5000 units/ml) 5,000 units EVERY 12 HOURS SUBQ 10/14/18 21:00 11/13/18 20:59 Pantoprazole (Protonix) 40 mg ACBREAKFAST ORAL 10/15/18 06:30 11/14/18 06:29 Tramadol HCl (Ultram) 50 mg Q6H PRN ORAL For Pain 10/14/18 13:30 10/21/18 13:29 10/14/18 15:05 Assessment/Plan Problem List: (1) Abdominal pain Assessment & Plan: This is a 58-year-old male with abdominal pain. Currently being admitted and treated for chest pain began to complain of abdominal discomfort. States is mainly left upper quadrant underneath his ribs. States he was told he has a ventral hernia and believes that this may be was causing his discomfort. States he had a CT scan in the past here and asked me to evaluate it. On clinical evaluation there is no ventral hernia identified. There are no inguinal hernias and right-sided hernia repair with mesh seems to be appropriate postoperatively patient will need to follow-up with his primary surgeon for further evaluation of that. Currently no nausea vomiting fever chills. No tenderness peritonitis on examination. Bowel sounds are noted. I reviewed the CT scan from prior and no acute abnormalities are noted. Patient possibly with colic or enteritis. No acute surgical intervention planned. KUB in a.m. Okay for diet. ICD Codes: R10.9 - Unspecified abdominal pain SNOMED: 31845282 (2) Ulcer of left foot Assessment & Plan: Patient with a ulcer at the distal aspect of his left great toe. States he was even unaware of it but likely due to trauma. Currently dry and no signs of infection. Does not seem to have significant peripheral vascular disease. Pulses are palpable. Also seems to have callused over. No history of diabetes. No acute intervention necessary. Be mindful and watching of trauma to his lower extremities. We will follow with recommendations. ICD Codes: L97.529 - Non-pressure chronic ulcer of other part of left foot with unspecified severity SNOMED: 49458018 Shade Cullen Oct 14, 2018 18:31
--- NOTE | 2018-10-14 19:25 | NUR ---
HAND-OFF: Report given to Janett Damon RN.
--- NOTE | 2018-10-14 19:36 | NUR ---
NURSE NOTES: RECEIVED PATIENT RESTING IN BED, NO COMPLAINTS OF PAIN AT THIS TIME. FALL PRECAUTIONS IN PLACE: CALL LIGHT, BEDSIDE TABLE AND URINAL WITHIN REACH, BED IN LOW POSITION. PLAN OF CARE REVIEWED.
[2018-10-14 20:00] VITALS: BP 108/70
[2018-10-14] MEDS: Heparin 5000 units/ml inj SUBQ SCH (20:25)
[2018-10-14] MEDS ORDERED: Morphine Sulfate 2mg/ml Inj(IV/IM USE ONLY) IVP PRN (20:45)
[2018-10-14] MEDS: Morphine Sulfate 2mg/ml Inj(IV/IM USE ONLY) IVP PRN (20:53)
[2018-10-15] VITALS: BP 101/65
[2018-10-15] MEDS: traMADol 50mg tab ORAL PRN ×4 (02:03→22:08)
[2018-10-15 04:00] VITALS: BP 99/65
--- NOTE | 2018-10-15 07:18 | NUR ---
HAND-OFF: Report given to Nelson MANNING RN. PATIENT RESTING IN BED, NO SIGNS OF DISTRESS NOTED.
--- NOTE | 2018-10-15 07:19 | NUR ---
NURSE NOTES: Received patient in bed. Alert, no apparent distress. Kept NPO for abdo xray. Will continue plan of care.
[2018-10-15 07:32] LABS: BASOPHILS % (AUTO) 1.1 % (0.0-2.0); EOSINOPHILS % (AUTO) 5.6 % (0.0-3.0); HEMATOCRIT 38.5 % (42.0-52.0); HEMOGLOBIN 12.4 G/DL (14.2-18.0); LYMPHOCYTES % (AUTO) 38.8 % (20.0-45.0); MEAN CORPUSCULAR VOLUME 88 FL (80-99); MONOCYTES % (AUTO) 7.6 % (1.0-10.0); NEUTROPHILS % (AUTO) 46.8 % (45.0-75.0); PLATELET COUNT 264 K/UL (150-450); RED BLOOD COUNT 4.36 M/UL (4.70-6.10); RED CELL DISTRIBUTION WIDTH 14.1 % (11.6-14.8); WHITE BLOOD COUNT 5.9 K/UL (4.8-10.8)
[2018-10-15 07:35] LABS: ALANINE AMINOTRANSFERASE 19 U/L (12-78); ALBUMIN 3.6 G/DL (3.4-5.0); ALBUMIN/GLOBULIN RATIO 0.9 (1.0-2.7); ALKALINE PHOSPHATASE 78 U/L (46-116); ANION GAP 3 mmol/L (5-15); ASPARTATE AMINO TRANSFERASE 22 U/L (15-37); BILIRUBIN,TOTAL 0.5 MG/DL (0.2-1.0); BLOOD UREA NITROGEN 15 mg/dL (7-18); CALCIUM 9.1 MG/DL (8.5-10.1); CARBON DIOXIDE 32 MMOL/L (21-32); CHLORIDE 101 MMOL/L (98-107); CHOLESTEROL 145 MG/DL (< 200); CREATININE 1.2 MG/DL (0.55-1.30); HDL CHOLESTEROL 64 MG/DL (40-60); POTASSIUM 4.3 MMOL/L (3.5-5.1); SODIUM 136 MMOL/L (136-145); TRIGLYCERIDES 56 MG/DL (30-150)
[2018-10-15 08:00] VITALS: BP 99/63
[2018-10-15] MEDS: Heparin 5000 units/ml inj SUBQ SCH ×2 (09:00→21:00)
--- NOTE | 2018-10-15 09:24 | NUR ---
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
--- NOTE | 2018-10-15 09:39 | GI Initial Consult Note ---
History of Present Illness General Date patient seen: Oct 15, 2018 Time patient seen: 09:35 Reason for Hospitalization: Chest Pain Referring physician: AMY Reason for Consultation: ABDOMINAL PAIN Present Illness HPI Chest pain. He states is exertional and somewhat positional. He says it is began 3 days ago been fairly constant. Worsened today. Patient is hypertension and smokes cigarettes. He denies doing drugs. The pain radiates down his left arm. Went severe at 9/10. He denies fevers or cough. Denies headache. He denies taking any medication to treat this. He denies prior cardiac work-up. Cardiac risk factors: Hypertension, smoking. The patient does not know his last for all. Denies family history. Although he denies diabetes or medication for this his past medical history reveals diabetes. He was evaluated last month for ventral hernia and abdominal pain. He is wondering whether this might be related to that problem. This is a completely different area of pain. No chills, sore throat, palpitations, nausea, vomiting, diarrhea, dysuria, joint pain, rashes, depression, anxiety, visual changes, headache. GI consulted for abdominal pain. Patient seen, awake alert oriented x4. The patient had reported severe left-sided chest pain with radiation to the left shoulder. In addition the patient stated he heard a loud "pop" in his abdomen. The patient does have a history of hernia repair approximately 1 month ago. Stated he also had a history of tracheoesophageal fistula status post repair about 4 years ago. His last colonoscopy was approximately 1 year ago in which he stated he was diagnosed with diverticulitis. Patient presents today with hemoglobin of 12, positive urine toxicity for cocaine. Denies any nausea vomiting, and constipation or diarrhea. Home Meds Reported Medications Omeprazole (OMEPRAZOLE) 10 Mg Capsule.dr, MG ORAL DAILY, #30 CAP 0 Refills 09/09/18 Amlodipine Besylate* (AMLODIPINE BESYLATE*) 2.5 Mg Tablet, MG ORAL DAILY, TAB 09/09/18 Hydrochlorothiazide* (HYDROCHLOROTHIAZIDE*) 12.5 Mg Capsule, MG ORAL DAILY, CAP 09/09/18 Ibuprofen* (MOTRIN*) 600 Mg Tablet, MG ORAL FOUR TIMES A DAY, #30 TAB 0 Refills 09/09/18 Tramadol Hcl* (ULTRAM*) 50 Mg Tablet, MG ORAL Q6H PRN for For Pain, #12 TAB 0 Refills 09/09/18 Gabapentin* (GABAPENTIN*) 100 Mg Capsule, MG ORAL THREE TIMES A DAY, CAP 09/09/18 Med list reviewed/reconciled: Yes Allergies: Coded Allergies: PENICILLINS (Verified Allergy, Unknown, 09/09/18) TETRACYCLINE (Verified Allergy, Unknown, 01/16/16) Patient History History Provided By: Patient, Medical Record PMH Narrative Past Medical History: see triage record Social History: Reports: smoking, alcohol use, drug use - Patient denied but C tox screen Social History Narrative From home Reviewed Nursing Documentation: PMH: Agreed; PSxH: Agreed Nursing Documentation-PMH Hx Hypertension: Yes Hx COPD: Yes Hx Diabetes: Yes Hx Gastrointestinal Problems: Yes - diverticulitis Hx Neurological Problems: Yes - neuropathy Social History: Reports: smoking, drug use Review of Systems All Other Systems: negative except mentioned in HPI Physical Exam Vital Signs Date Time Temp Pulse Resp B/P (MAP) Pulse Ox O2 Delivery O2 Flow Rate FiO2 10/14/18 10:29 97.7 64 16 112/82 (92) 93 Room Air Sp02 EP Interpretation: reviewed, normal Labs Laboratory Tests Test 10/14/18 11:00 10/15/18 06:15 White Blood Count 5.9 K/UL (4.8-10.8) 5.9 K/UL (4.8-10.8) Red Blood Count 4.81 M/UL (4.70-6.10) 4.36 M/UL (4.70-6.10) L Hemoglobin 13.7 G/DL (14.2-18.0) L 12.4 G/DL (14.2-18.0) L Hematocrit 42.5 % (42.0-52.0) 38.5 % (42.0-52.0) L Mean Corpuscular Volume 88 FL (80-99) 88 FL (80-99) Mean Corpuscular Hemoglobin 28.5 PG (27.0-31.0) 28.4 PG (27.0-31.0) Mean Corpuscular Hemoglobin Concent 32.2 G/DL (32.0-36.0) 32.1 G/DL (32.0-36.0) Red Cell Distribution Width 14.3 % (11.6-14.8) 14.1 % (11.6-14.8) Platelet Count 286 K/UL (150-450) 264 K/UL (150-450) Mean Platelet Volume 5.6 FL (6.5-10.1) L 5.9 FL (6.5-10.1) L Neutrophils (%) (Auto) 47.1 % (45.0-75.0) 46.8 % (45.0-75.0) Lymphocytes (%) (Auto) 39.8 % (20.0-45.0) 38.8 % (20.0-45.0) Monocytes (%) (Auto) 6.5 % (1.0-10.0) 7.6 % (1.0-10.0) Eosinophils (%) (Auto) 4.8 % (0.0-3.0) H 5.6 % (0.0-3.0) H Basophils (%) (Auto) 1.8 % (0.0-2.0) 1.1 % (0.0-2.0) Prothrombin Time 9.7 SEC (9.30-11.50) Prothromb Time International Ratio 0.9 (0.9-1.1) Activated Partial Thromboplast Time 27 SEC (23-33) Urine Color Pale yellow Urine Appearance Clear Urine pH 7 (4.5-8.0) Urine Specific [place] 1.005 (1.005-1.035) Urine Protein Negative (NEGATIVE) Urine Glucose (UA) Negative (NEGATIVE) Urine Ketones Negative (NEGATIVE) Urine Blood Negative (NEGATIVE) Urine Nitrite Negative (NEGATIVE) Urine Bilirubin Negative (NEGATIVE) Urine Urobilinogen Normal MG/DL (0.0-1.0) Urine Leukocyte Esterase 1+ (NEGATIVE) H Urine RBC 0-2 /HPF (0 - 0) H Urine WBC 0-2 /HPF (0 - 0) Urine Squamous Epithelial Cells Occasional /LPF Urine Bacteria Occasional /HPF (NONE) Sodium Level 136 MMOL/L (136-145) 136 MMOL/L (136-145) Potassium Level 3.9 MMOL/L (3.5-5.1) 4.3 MMOL/L (3.5-5.1) Chloride Level 99 MMOL/L (98-107) 101 MMOL/L (98-107) Carbon Dioxide Level 31 MMOL/L (21-32) 32 MMOL/L (21-32) Anion Gap 6 mmol/L (5-15) 3 mmol/L (5-15) L Blood Urea Nitrogen 17 mg/dL (7-18) 15 mg/dL (7-18) Creatinine 1.4 MG/DL (0.55-1.30) H 1.2 MG/DL (0.55-1.30) Estimat Glomerular Filtration Rate > 60 mL/min (>60) > 60 mL/min (>60) Glucose Level 88 MG/DL (74-106) 84 MG/DL (74-106) Calcium Level 9.0 MG/DL (8.5-10.1) 9.1 MG/DL (8.5-10.1) Total Bilirubin 0.4 MG/DL (0.2-1.0) 0.5 MG/DL (0.2-1.0) Aspartate Amino Transf (AST/SGOT) 28 U/L (15-37) 22 U/L (15-37) Alanine Aminotransferase (ALT/SGPT) 22 U/L (12-78) 19 U/L (12-78) Alkaline Phosphatase 83 U/L (46-116) 78 U/L (46-116) Total Creatine Kinase 442 U/L (26-308) H Troponin I 0.000 ng/mL (0.000-0.056) 0.000 ng/mL (0.000-0.056) Pro-B-Type Natriuretic Peptide 55 pg/mL (0-125) Total Protein 8.3 G/DL (6.4-8.2) H 7.7 G/DL (6.4-8.2) Albumin 4.1 G/DL (3.4-5.0) 3.6 G/DL (3.4-5.0) Globulin 4.2 g/dL 4.1 g/dL Albumin/Globulin Ratio 1.0 (1.0-2.7) 0.9 (1.0-2.7) L Lipase 141 U/L (73-393) Urine Opiates Screen Negative (NEGATIVE) Urine Barbiturates Screen Negative (NEGATIVE) Phencyclidine (PCP) Screen Negative (NEGATIVE) Urine Amphetamines Screen Negative (NEGATIVE) Urine Benzodiazepines Screen Negative (NEGATIVE) Urine Cocaine Screen Positive (NEGATIVE) H Urine Marijuana (THC) Screen Negative (NEGATIVE) Hemoglobin A1c 6.0 % (4.3-6.0) Triglycerides Level 56 MG/DL (30-150) Cholesterol Level 145 MG/DL (< 200) LDL Cholesterol 71 mg/dL (<100) HDL Cholesterol 64 MG/DL (40-60) H Cholesterol/HDL Ratio 2.3 (3.3-4.4) L Thyroid Stimulating Hormone (TSH) 2.037 uiU/mL (0.358-3.740) General Appearance: well appearing, no apparent distress, alert Head: normocephalic EENT: PERRL/EOMI, normal ENT inspection Neck: supple Respiratory: normal breath sounds, no respiratory distress Cardiovascular: normal rate Gastrointestinal: normal inspection, non tender, soft, normal bowel sounds, non -distended Rectal: deferred Genitourinary: deferred Musculoskeletal: normal inspection, back normal Neurologic: normal inspection, alert, oriented x3, responsive Psychiatric: normal inspection, judgement/insight normal, memory normal Skin: normal inspection, normal color, no rash, warm/dry, palpation normal, well hydrated Lymphatic: normal inspection, no adenopathy Current Medications Current Medications Medications (Trade) Dose Ordered Sig/Mayda Route PRN Reason Start Time Stop Time Status Last Admin Dose Admin Amlodipine Besylate (Norvasc) 2.5 mg DAILY ORAL 10/15/18 09:00 11/14/18 08:59 Gabapentin (Neurontin) 600 mg THREE TIMES A DAY ORAL 10/14/18 18:00 11/13/18 17:59 10/15/18 08:27 Heparin Sodium (Porcine) (Heparin 5000 units/ml) 5,000 units EVERY 12 HOURS SUBQ 10/14/18 21:00 11/13/18 20:59 10/14/18 20:25 Morphine Sulfate (Morphine Sulfate) 2 mg Q8H PRN IVP Severe Pain (Pain Scale 7-10) 10/14/18 20:45 10/21/18 20:44 10/14/18 20:53 Ondansetron HCl (Zofran) 4 mg Q6H PRN IVP Nausea & Vomiting 10/15/18 08:30 11/14/18 08:29 10/15/18 08:27 Pantoprazole (Protonix) 40 mg ACBREAKFAST ORAL 10/15/18 06:30 11/14/18 06:29 10/15/18 05:57 Tramadol HCl (Ultram) 50 mg Q6H PRN ORAL moderate pain 10/15/18 06:15 10/21/18 13:29 10/15/18 08:47 GI: Plan Problems: (1) Cocaine abuse (2) Abdominal pain (3) Acute alcoholic intoxication (4) Chest pain Plan Will consider endoscopy pending cardiac work-up Follow-up surgical recommendations to evaluate ventral hernia Anemia work-up PRN transfusions PPI Advance diet as tolerated Zofran as needed Follow labs Discussed with Dr. Sinha. Thank you for this patient referral, we will follow. The patient was seen and examined at bedside and all new and available data was reviewed in the patients chart. I agree with the above findings, impression and plan. (Patient seen earlier today. Signature stamp does not reflect patient encounter time.). - MD Deborah CameronLucretia-Srini NICOLETTE Oct 15, 2018 09:39
--- NOTE | 2018-10-15 09:46 | Consultation ---
History of Present Illness General Date patient seen: Oct 15, 2018 Time patient seen: 09:43 Chief Complaint: Chest Pain Referring physician: AMY Reason for Consultation: ABDOMINAL PAIN Present Illness HPI This is a pleasant 58-year-old male with history of hypertension who presented to the [facility] complaining of acutely worsening chest pain for approximately 3 days. He has a heavy smoking. No prior NE Initial troponin negative. Allergies: Coded Allergies: PENICILLINS (Verified Allergy, Unknown, 09/09/18) TETRACYCLINE (Verified Allergy, Unknown, 01/16/16) Medication History Scheduled Amlodipine Besylate* (Amlodipine Besylate*), MG ORAL DAILY, (Reported) Gabapentin* (Gabapentin*), MG ORAL THREE TIMES A DAY, (Reported) Hydrochlorothiazide* (Hydrochlorothiazide*), MG ORAL DAILY, (Reported) Ibuprofen* (Motrin*), MG ORAL FOUR TIMES A DAY, (Reported) Omeprazole (Omeprazole), MG ORAL DAILY, (Reported) Scheduled PRN Tramadol Hcl* (Ultram*), MG ORAL Q6H PRN for For Pain, (Reported) Patient History Healthcare decision maker Resuscitation status Full Code Advanced Directive on File Review of Systems Constitutional: Reports: no symptoms Eye: Reports: no symptoms ENT: Reports: no symptoms Respiratory: Reports: no symptoms Cardiovascular: Reports: chest pain Gastrointestinal: Reports: no symptoms Genitourinary: Reports: no symptoms Musculoskeletal: Reports: no symptoms Skin: Reports: no symptoms Psychiatric: Reports: no symptoms Neurological: Reports: no symptoms Endocrine: Reports: no symptoms Hematologic/Lymphatic: Reports: no symptoms Physical Exam General Appearance: no apparent distress, alert Lines, tubes and drains: peripheral HEENT: normocephalic, atraumatic Neck: non-tender, normal alignment, supple, normal inspection Respiratory/Chest: chest wall non-tender, lungs clear, normal breath sounds Cardiovascular/Chest: normal peripheral pulses, normal rate, regular rhythm Abdomen: normal bowel sounds, non tender, soft, no organomegaly Extremities: normal range of motion, non-tender, normal inspection, no calf tenderness, normal capillary refill, non-pitting Skin Exam: normal pigmentation, warm/dry, cyanotic 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 normal, no motor/sensory deficits Last 24 Hour Vital Signs Date Time Temp Pulse Resp B/P (MAP) Pulse Ox O2 Delivery O2 Flow Rate FiO2 10/15/18 09:00 54 99/63 10/15/18 08:00 97.7 54 18 99/63 (75) 96 10/15/18 04:00 98.1 51 18 99/65 (76) 99 10/15/18 04:00 49 10/15/18 00:00 50 10/15/18 00:00 97.8 52 18 101/65 (77) 100 10/14/18 21:00 Room Air 10/14/18 20:00 58 10/14/18 20:00 97.9 60 18 108/70 (83) 100 10/14/18 16:05 Room Air 10/14/18 16:00 97.0 52 21 107/78 (88) 100 10/14/18 13:11 40 10/14/18 12:35 53 10/14/18 12:20 96.3 51 20 109/77 (88) 99 10/14/18 12:08 98.1 52 18 116/74 97 Room Air 10/14/18 11:16 118/79 10/14/18 11:15 118/79 10/14/18 10:35 98.0 47 19 118/79 98 Room Air 10/14/18 10:35 47 19 Room Air 10/14/18 10:29 97.7 64 16 112/82 (92) 93 Room Air Intake and Output 10/14/18 10/15/18 19:00 07:00 Intake Total 240 ml Balance 240 ml Intake Oral 240 ml # Voids 5 4 Laboratory Tests Test 10/14/18 11:00 10/15/18 06:15 White Blood Count 5.9 K/UL (4.8-10.8) 5.9 K/UL (4.8-10.8) Red Blood Count 4.81 M/UL (4.70-6.10) 4.36 M/UL (4.70-6.10) L Hemoglobin 13.7 G/DL (14.2-18.0) L 12.4 G/DL (14.2-18.0) L Hematocrit 42.5 % (42.0-52.0) 38.5 % (42.0-52.0) L Mean Corpuscular Volume 88 FL (80-99) 88 FL (80-99) Mean Corpuscular Hemoglobin 28.5 PG (27.0-31.0) 28.4 PG (27.0-31.0) Mean Corpuscular Hemoglobin Concent 32.2 G/DL (32.0-36.0) 32.1 G/DL (32.0-36.0) Red Cell Distribution Width 14.3 % (11.6-14.8) 14.1 % (11.6-14.8) Platelet Count 286 K/UL (150-450) 264 K/UL (150-450) Mean Platelet Volume 5.6 FL (6.5-10.1) L 5.9 FL (6.5-10.1) L Neutrophils (%) (Auto) 47.1 % (45.0-75.0) 46.8 % (45.0-75.0) Lymphocytes (%) (Auto) 39.8 % (20.0-45.0) 38.8 % (20.0-45.0) Monocytes (%) (Auto) 6.5 % (1.0-10.0) 7.6 % (1.0-10.0) Eosinophils (%) (Auto) 4.8 % (0.0-3.0) H 5.6 % (0.0-3.0) H Basophils (%) (Auto) 1.8 % (0.0-2.0) 1.1 % (0.0-2.0) Prothrombin Time 9.7 SEC (9.30-11.50) Prothromb Time International Ratio 0.9 (0.9-1.1) Activated Partial Thromboplast Time 27 SEC (23-33) Urine Color Pale yellow Urine Appearance Clear Urine pH 7 (4.5-8.0) Urine Specific [place] 1.005 (1.005-1.035) Urine Protein Negative (NEGATIVE) Urine Glucose (UA) Negative (NEGATIVE) Urine Ketones Negative (NEGATIVE) Urine Blood Negative (NEGATIVE) Urine Nitrite Negative (NEGATIVE) Urine Bilirubin Negative (NEGATIVE) Urine Urobilinogen Normal MG/DL (0.0-1.0) Urine Leukocyte Esterase 1+ (NEGATIVE) H Urine RBC 0-2 /HPF (0 - 0) H Urine WBC 0-2 /HPF (0 - 0) Urine Squamous Epithelial Cells Occasional /LPF Urine Bacteria Occasional /HPF (NONE) Sodium Level 136 MMOL/L (136-145) 136 MMOL/L (136-145) Potassium Level 3.9 MMOL/L (3.5-5.1) 4.3 MMOL/L (3.5-5.1) Chloride Level 99 MMOL/L (98-107) 101 MMOL/L (98-107) Carbon Dioxide Level 31 MMOL/L (21-32) 32 MMOL/L (21-32) Anion Gap 6 mmol/L (5-15) 3 mmol/L (5-15) L Blood Urea Nitrogen 17 mg/dL (7-18) 15 mg/dL (7-18) Creatinine 1.4 MG/DL (0.55-1.30) H 1.2 MG/DL (0.55-1.30) Estimat Glomerular Filtration Rate > 60 mL/min (>60) > 60 mL/min (>60) Glucose Level 88 MG/DL (74-106) 84 MG/DL (74-106) Calcium Level 9.0 MG/DL (8.5-10.1) 9.1 MG/DL (8.5-10.1) Total Bilirubin 0.4 MG/DL (0.2-1.0) 0.5 MG/DL (0.2-1.0) Aspartate Amino Transf (AST/SGOT) 28 U/L (15-37) 22 U/L (15-37) Alanine Aminotransferase (ALT/SGPT) 22 U/L (12-78) 19 U/L (12-78) Alkaline Phosphatase 83 U/L (46-116) 78 U/L (46-116) Total Creatine Kinase 442 U/L (26-308) H Troponin I 0.000 ng/mL (0.000-0.056) 0.000 ng/mL (0.000-0.056) Pro-B-Type Natriuretic Peptide 55 pg/mL (0-125) Total Protein 8.3 G/DL (6.4-8.2) H 7.7 G/DL (6.4-8.2) Albumin 4.1 G/DL (3.4-5.0) 3.6 G/DL (3.4-5.0) Globulin 4.2 g/dL 4.1 g/dL Albumin/Globulin Ratio 1.0 (1.0-2.7) 0.9 (1.0-2.7) L Lipase 141 U/L (73-393) Urine Opiates Screen Negative (NEGATIVE) Urine Barbiturates Screen Negative (NEGATIVE) Phencyclidine (PCP) Screen Negative (NEGATIVE) Urine Amphetamines Screen Negative (NEGATIVE) Urine Benzodiazepines Screen Negative (NEGATIVE) Urine Cocaine Screen Positive (NEGATIVE) H Urine Marijuana (THC) Screen Negative (NEGATIVE) Hemoglobin A1c 6.0 % (4.3-6.0) Triglycerides Level 56 MG/DL (30-150) Cholesterol Level 145 MG/DL (< 200) LDL Cholesterol 71 mg/dL (<100) HDL Cholesterol 64 MG/DL (40-60) H Cholesterol/HDL Ratio 2.3 (3.3-4.4) L Thyroid Stimulating Hormone (TSH) 2.037 uiU/mL (0.358-3.740) Height (Feet): 6 Height (Inches): 1.00 Weight (Pounds): 180 Medications Current Medications Medications (Trade) Dose Ordered Sig/Mayda Route PRN Reason Start Time Stop Time Status Last Admin Dose Admin Amlodipine Besylate (Norvasc) 2.5 mg DAILY ORAL 10/15/18 09:00 11/14/18 08:59 Gabapentin (Neurontin) 600 mg THREE TIMES A DAY ORAL 10/14/18 18:00 11/13/18 17:59 10/15/18 08:27 Heparin Sodium (Porcine) (Heparin 5000 units/ml) 5,000 units EVERY 12 HOURS SUBQ 10/14/18 21:00 11/13/18 20:59 10/14/18 20:25 Morphine Sulfate (Morphine Sulfate) 2 mg Q8H PRN IVP Severe Pain (Pain Scale 7-10) 10/14/18 20:45 10/21/18 20:44 10/14/18 20:53 Ondansetron HCl (Zofran) 4 mg Q6H PRN IVP Nausea & Vomiting 10/15/18 08:30 11/14/18 08:29 10/15/18 08:27 Pantoprazole (Protonix) 40 mg ACBREAKFAST ORAL 10/15/18 06:30 11/14/18 06:29 10/15/18 05:57 Tramadol HCl (Ultram) 50 mg Q6H PRN ORAL moderate pain 10/15/18 06:15 10/21/18 13:29 10/15/18 08:47 Assessment/Plan Status: stable Assessment/Plan: Assessment: (1) Cocaine abuse (2) Abdominal pain (3) Acute alcoholic intoxication (4) Chest pain Plan: Given risk factor HTN/Smoking and symptoms will opt for exercise echocardiogram Nitro prn Hold aspirin given anemia and possible GI bleed Statin Rocky Mcwilliams MD Oct 15, 2018 09:46
--- NOTE | 2018-10-15 09:54 | History & Physical ---
History and Physical History & Physicial Seen and examined.Full DIctation completed on 951 AM Karie eNwman MD Oct 15, 2018 09:54
--- NOTE | 2018-10-15 09:56 | General Progress Note ---
Assessment/Plan Status: stable Assessment/Plan: Full Dictation in progress: 1- ACS 2- HTN 3- Sinus Bradycardia Plan: Echo ordered DC CCB, start diuretic Will monitor BP Cardiology notified Subjective Allergies: Coded Allergies: PENICILLINS (Verified Allergy, Unknown, 09/09/18) TETRACYCLINE (Verified Allergy, Unknown, 01/16/16) Objective Last 24 Hour Vital Signs Date Time Temp Pulse Resp B/P (MAP) Pulse Ox O2 Delivery O2 Flow Rate FiO2 10/15/18 09:00 Room Air 10/15/18 09:00 54 99/63 10/15/18 08:00 97.7 54 18 99/63 (75) 96 10/15/18 07:26 48 10/15/18 04:00 98.1 51 18 99/65 (76) 99 10/15/18 04:00 49 10/15/18 00:00 50 10/15/18 00:00 97.8 52 18 101/65 (77) 100 10/14/18 21:00 Room Air 10/14/18 20:00 58 10/14/18 20:00 97.9 60 18 108/70 (83) 100 10/14/18 16:05 Room Air 10/14/18 16:00 97.0 52 21 107/78 (88) 100 10/14/18 13:11 40 10/14/18 12:35 53 10/14/18 12:20 96.3 51 20 109/77 (88) 99 10/14/18 12:08 98.1 52 18 116/74 97 Room Air 10/14/18 11:16 118/79 10/14/18 11:15 118/79 10/14/18 10:35 98.0 47 19 118/79 98 Room Air 10/14/18 10:35 47 19 Room Air 10/14/18 10:29 97.7 64 16 112/82 (92) 93 Room Air Intake and Output 10/14/18 10/15/18 19:00 07:00 Intake Total 240 ml Balance 240 ml Intake Oral 240 ml # Voids 5 4 Laboratory Tests 10/14/18 11:00: White Blood Count 5.9, Red Blood Count 4.81, Hemoglobin 13.7L, Hematocrit 42.5, Mean Corpuscular Volume 88, Mean Corpuscular Hemoglobin 28.5, Mean Corpuscular Hemoglobin Concent 32.2, Red Cell Distribution Width 14.3, Platelet Count 286, Mean Platelet Volume 5.6L, Neutrophils (%) (Auto) 47.1, Lymphocytes (%) (Auto) 39.8, Monocytes (%) (Auto) 6.5, Eosinophils (%) (Auto) 4.8H, Basophils (%) (Auto ) 1.8, Prothrombin Time 9.7, Prothromb Time International Ratio 0.9, Activated Partial Thromboplast Time 27, Urine Color Pale yellow, Urine Appearance Clear, Urine pH 7, Urine Specific [place] 1.005, Urine Protein Negative, Urine Glucose (UA) Negative, Urine Ketones Negative, Urine Blood Negative, Urine Nitrite Negative, Urine Bilirubin Negative, Urine Urobilinogen Normal, Urine Leukocyte Esterase 1+H, Urine RBC 0-2H, Urine WBC 0-2, Urine Squamous Epithelial Cells Occasional, Urine Bacteria Occasional, Sodium Level 136, Potassium Level 3.9, Chloride Level 99, Carbon Dioxide Level 31, Anion Gap 6, Blood Urea Nitrogen 17 , Creatinine 1.4H, Estimat Glomerular Filtration Rate > 60, Glucose Level 88, Calcium Level 9.0, Total Bilirubin 0.4, Aspartate Amino Transf (AST/SGOT) 28, Alanine Aminotransferase (ALT/SGPT) 22, Alkaline Phosphatase 83, Total Creatine Kinase 442H, Troponin I 0.000, Pro-B-Type Natriuretic Peptide 55, Total Protein 8.3H, Albumin 4.1, Globulin 4.2, Albumin/Globulin Ratio 1.0, Lipase 141, Urine Opiates Screen Negative, Urine Barbiturates Screen Negative, Phencyclidine (PCP ) Screen Negative, Urine Amphetamines Screen Negative, Urine Benzodiazepines Screen Negative, Urine Cocaine Screen PositiveH, Urine Marijuana (THC) Screen Negative 10/15/18 06:15: White Blood Count 5.9, Red Blood Count 4.36L, Hemoglobin 12.4L, Hematocrit 38.5L , Mean Corpuscular Volume 88, Mean Corpuscular Hemoglobin 28.4, Mean Corpuscular Hemoglobin Concent 32.1, Red Cell Distribution Width 14.1, Platelet Count 264, Mean Platelet Volume 5.9L, Neutrophils (%) (Auto) 46.8, Lymphocytes ( %) (Auto) 38.8, Monocytes (%) (Auto) 7.6, Eosinophils (%) (Auto) 5.6H, Basophils (%) (Auto) 1.1, Sodium Level 136, Potassium Level 4.3, Chloride Level 101, Carbon Dioxide Level 32, Anion Gap 3L, Blood Urea Nitrogen 15, Creatinine 1.2, Estimat Glomerular Filtration Rate > 60, Glucose Level 84, Calcium Level 9.1, Total Bilirubin 0.5, Aspartate Amino Transf (AST/SGOT) 22, Alanine Aminotransferase (ALT/SGPT) 19, Alkaline Phosphatase 78, Troponin I 0.000, Total Protein 7.7, Albumin 3.6, Globulin 4.1, Albumin/Globulin Ratio 0.9L, Hemoglobin A1c 6.0, Triglycerides Level 56, Cholesterol Level 145, LDL Cholesterol 71, HDL Cholesterol 64H, Cholesterol/HDL Ratio 2.3L, Thyroid Stimulating Hormone (TSH) 2.037 Height (Feet): 6 Height (Inches): 1.00 Weight (Pounds): 180 Karie Newman MD Oct 15, 2018 09:56
--- NOTE | 2018-10-15 11:49 | NUR ---
*-* INSURANCE *-* ALL CLINICALS AND REVIEWS HAVE BEEN FAXED TO: [facility] P: [phone] F: [phone]
[2018-10-15 12:00] VITALS: BP 108/70
--- NOTE | 2018-10-15 14:20 | Surgery Progress Note ---
Surgery Progress Note Subjective Additional Comments no acute events states pain improved no n/v/f/c still ab discomfort but no pain informed of prior CT results Objective Last 24 Hour Vital Signs Date Time Temp Pulse Resp B/P (MAP) Pulse Ox O2 Delivery O2 Flow Rate FiO2 10/15/18 12:00 97.5 58 20 108/70 (83) 97 10/15/18 11:31 51 10/15/18 09:00 Room Air 10/15/18 09:00 54 99/63 10/15/18 08:00 97.7 54 18 99/63 (75) 96 10/15/18 07:26 48 10/15/18 04:00 98.1 51 18 99/65 (76) 99 10/15/18 04:00 49 10/15/18 00:00 50 10/15/18 00:00 97.8 52 18 101/65 (77) 100 10/14/18 21:00 Room Air 10/14/18 20:00 58 10/14/18 20:00 97.9 60 18 108/70 (83) 100 10/14/18 16:05 Room Air 10/14/18 16:00 97.0 52 21 107/78 (88) 100 I&O Intake and Output 10/14/18 10/15/18 19:00 07:00 Intake Total 240 ml Balance 240 ml Intake Oral 240 ml # Voids 5 4 Cardiovascular: RSR Respiratory: clear Abdomen: soft, flat, non-tender, present bowel sounds Extremities: no cyanosis Laboratory Tests Test 10/15/18 06:15 White Blood Count 5.9 K/UL (4.8-10.8) Red Blood Count 4.36 M/UL (4.70-6.10) L Hemoglobin 12.4 G/DL (14.2-18.0) L Hematocrit 38.5 % (42.0-52.0) L Mean Corpuscular Volume 88 FL (80-99) Mean Corpuscular Hemoglobin 28.4 PG (27.0-31.0) Mean Corpuscular Hemoglobin Concent 32.1 G/DL (32.0-36.0) Red Cell Distribution Width 14.1 % (11.6-14.8) Platelet Count 264 K/UL (150-450) Mean Platelet Volume 5.9 FL (6.5-10.1) L Neutrophils (%) (Auto) 46.8 % (45.0-75.0) Lymphocytes (%) (Auto) 38.8 % (20.0-45.0) Monocytes (%) (Auto) 7.6 % (1.0-10.0) Eosinophils (%) (Auto) 5.6 % (0.0-3.0) H Basophils (%) (Auto) 1.1 % (0.0-2.0) Sodium Level 136 MMOL/L (136-145) Potassium Level 4.3 MMOL/L (3.5-5.1) Chloride Level 101 MMOL/L (98-107) Carbon Dioxide Level 32 MMOL/L (21-32) Anion Gap 3 mmol/L (5-15) L Blood Urea Nitrogen 15 mg/dL (7-18) Creatinine 1.2 MG/DL (0.55-1.30) Estimat Glomerular Filtration Rate > 60 mL/min (>60) Glucose Level 84 MG/DL (74-106) Hemoglobin A1c 6.0 % (4.3-6.0) Calcium Level 9.1 MG/DL (8.5-10.1) Total Bilirubin 0.5 MG/DL (0.2-1.0) Aspartate Amino Transf (AST/SGOT) 22 U/L (15-37) Alanine Aminotransferase (ALT/SGPT) 19 U/L (12-78) Alkaline Phosphatase 78 U/L (46-116) Troponin I 0.000 ng/mL (0.000-0.056) Total Protein 7.7 G/DL (6.4-8.2) Albumin 3.6 G/DL (3.4-5.0) Globulin 4.1 g/dL Albumin/Globulin Ratio 0.9 (1.0-2.7) L Triglycerides Level 56 MG/DL (30-150) Cholesterol Level 145 MG/DL (< 200) LDL Cholesterol 71 mg/dL (<100) HDL Cholesterol 64 MG/DL (40-60) H Cholesterol/HDL Ratio 2.3 (3.3-4.4) L Thyroid Stimulating Hormone (TSH) 2.037 uiU/mL (0.358-3.740) Plan Problems: (1) Abdominal pain Assessment & Plan: This is a 58-year-old male with abdominal pain. Currently being admitted and treated for chest pain began to complain of abdominal discomfort. States is mainly left upper quadrant underneath his ribs. States he was told he has a ventral hernia and believes that this may be was causing his discomfort. States he had a CT scan in the past here and asked me to evaluate it. On clinical evaluation there is no ventral hernia identified. There are no inguinal hernias and right-sided hernia repair with mesh seems to be appropriate postoperatively patient will need to follow-up with his primary surgeon for further evaluation of that. Currently no nausea vomiting fever chills. No tenderness peritonitis on examination. Bowel sounds are noted. I reviewed the CT scan from prior and no acute abnormalities are noted. Patient possibly with colic or enteritis. No acute surgical intervention planned. KUB in a.m. Okay for diet. (2) Ulcer of left foot Assessment & Plan: Patient with a ulcer at the distal aspect of his left great toe. States he was even unaware of it but likely due to trauma. Currently dry and no signs of infection. Does not seem to have significant peripheral vascular disease. Pulses are palpable. Also seems to have callused over. No history of diabetes. No acute intervention necessary. Be mindful and watching of trauma to his lower extremities. We will follow with recommendations. Shade Cullen Oct 15, 2018 14:20
[2018-10-15 16:00] VITALS: BP 103/67
--- NOTE | 2018-10-15 16:30 | NUR ---
HAND-OFF: Report given to LUMA Go.
--- NOTE | 2018-10-15 16:30 | NUR ---
NURSE NOTES: Received report from Hoa GE. AOX4, No distress noted. Will continue plan of care.
--- NOTE | 2018-10-15 17:01 | Diagnostic Imaging Report ---
Indication: Abdominal pain Technique: Supine view of the abdomen Comparison: none Findings: Unremarkable bowel gas pattern. There is lumbar scoliotic deformity. There are mild degenerative changes of the lumbar spine. No masses or unusual calcifications Impression: No acute process
--- NOTE | 2018-10-15 17:45 | History and Physical Report ---
DATE OF ADMISSION: 10/14/2018 HISTORY OF PRESENT ILLNESS: The patient is a 58-year-old male with a history of hypertension, who presented to the [facility] with complaints of worsening pain in the left chest wall for the last 3 days. The patient has a history of long time tobacco use. No other history of cardiovascular disease. PAST MEDICAL HISTORY: Hypertension, chronic pain, and GERD. CURRENT OUTPATIENT MEDICATIONS: Including amlodipine, gabapentin, and morphine. SOCIAL HISTORY: Positive for active tobacco use. Positive for illicit drug abuse. Negative for alcohol abuse. PHYSICAL EXAMINATION: VITAL SIGNS: Blood pressure 100/60, temperature 98.2, pulse oximetry 98% on room air, pulse rate 45 to 52. HEAD AND NECK: Atraumatic and normocephalic. CHEST: Clear to auscultation. HEART: S1, S2. Regular rate and rhythm. ABDOMEN: Soft. No organomegaly. MUSCULOSKELETAL: No gross lateralized motor deficit. NEUROLOGY: Awake, alert, and oriented x3. ASSESSMENT: 1. Acute coronary syndrome. 2. Sinus bradycardia. 3. Chronic pain. 4. Renal failure. 5. Cocaine abuse. 6. GI and DVT prophylaxis. 7. Anemia. IMAGING: Chest x-ray dated October 14, 2018, unremarkable. LABORATORY DATA: Labs dated October 14, 2018 shows hemoglobin of 13.7 and creatinine of 1.4. Troponin unremarkable. TSH x1 negative. PLAN OF CARE: I agree with the telemetry admission. Cardiology notified. We will check an anemia panel. We will order the echo. We will optimize the blood pressure medications as well as the pain medication. Karie Newman M.D. DR: ROXI JOB#: [id number] CC:
--- NOTE | 2018-10-15 19:40 | NUR ---
HAND-OFF: Report given to Horacio GE. Pt remains stable.
--- NOTE | 2018-10-15 19:41 | NUR ---
NURSE NOTES: Received report from LUMA Go. Pt is resting in bed. In no acute distress. IV line intact and patent. Bed in lowest position, call light within reach. Will continue plan of care.
[2018-10-15 20:00] VITALS: BP 104/57
[2018-10-16] VITALS: BP 113/75
[2018-10-16 04:00] VITALS: BP 109/61
[2018-10-16 07:08] LABS: BASOPHILS % (AUTO) 1.4 % (0.0-2.0); EOSINOPHILS % (AUTO) 5.6 % (0.0-3.0); HEMATOCRIT 38.7 % (42.0-52.0); HEMOGLOBIN 12.4 G/DL (14.2-18.0); LYMPHOCYTES % (AUTO) 28.7 % (20.0-45.0); MEAN CORPUSCULAR VOLUME 89 FL (80-99); MONOCYTES % (AUTO) 9.2 % (1.0-10.0); NEUTROPHILS % (AUTO) 55.1 % (45.0-75.0); PLATELET COUNT 248 K/UL (150-450); RED BLOOD COUNT 4.32 M/UL (4.70-6.10); RED CELL DISTRIBUTION WIDTH 14.3 % (11.6-14.8); WHITE BLOOD COUNT 6.9 K/UL (4.8-10.8)
[2018-10-16 07:19] LABS: % IRON SATURATION 12 % (15-50); IRON 45 ug/dL (50-175); TOTAL IRON BINDING CAPACITY 364 ug/dL (250-450)
--- NOTE | 2018-10-16 07:21 | NUR ---
HAND-OFF: Report given to LUMA Morse.
[2018-10-16 07:25] LABS: ALANINE AMINOTRANSFERASE 17 U/L (12-78); ALBUMIN 3.4 G/DL (3.4-5.0); ALBUMIN/GLOBULIN RATIO 0.9 (1.0-2.7); ALKALINE PHOSPHATASE 80 U/L (46-116); ANION GAP 6 mmol/L (5-15); ASPARTATE AMINO TRANSFERASE 19 U/L (15-37); BILIRUBIN,TOTAL 0.4 MG/DL (0.2-1.0); BLOOD UREA NITROGEN 14 mg/dL (7-18); CALCIUM 9.2 MG/DL (8.5-10.1); CARBON DIOXIDE 29 MMOL/L (21-32); CHLORIDE 104 MMOL/L (98-107); CREATININE 1.2 MG/DL (0.55-1.30); FERRITIN 28 NG/ML (8-388); SODIUM 139 MMOL/L (136-145)
[2018-10-16] MEDS: traMADol 50mg tab ORAL PRN ×2 (07:47→14:47)
[2018-10-16 08:00] VITALS: BP 129/71
--- NOTE | 2018-10-16 08:04 | NUR ---
NURSE NOTES: Received patient from Jamaal Leonard. Patient AAOx4. For Stress test today. Patient NPO since after midnight. Will follow.
[2018-10-16] MEDS: Heparin 5000 units/ml inj SUBQ SCH ×2 (08:24→20:31)
--- NOTE | 2018-10-16 09:58 | General Progress Note ---
Assessment/Plan Status: stable Assessment/Plan: S: I am in pain O: Seems comfortable, no severe chest pain HYSICAL EXAMINATION: HEAD AND NECK: Atraumatic and normocephalic. CHEST: Clear to auscultation.HEART: S1, S2. Regular rate and rhythm. ABDOMEN: Soft. No organomegaly.MUSCULOSKELETAL: No gross lateralized motor deficit. NEUROLOGY: Awake, alert, and oriented x3. Labs: reviwed and reconcilled 1. Acute coronary syndrome. 2. Sinus bradycardia. 3. Chronic pain. 4. Renal failure. 5. Cocaine abuse. 6. GI and DVT prophylaxis. 7. Anemia. Plan: Echo ordered DC CCB, start diuretic Will monitor BP Notes from cardiology reviewed Pending stress test Subjective Allergies: Coded Allergies: PENICILLINS (Verified Allergy, Unknown, 09/09/18) TETRACYCLINE (Verified Allergy, Unknown, 01/16/16) Objective Last 24 Hour Vital Signs Date Time Temp Pulse Resp B/P (MAP) Pulse Ox O2 Delivery O2 Flow Rate FiO2 10/16/18 09:00 58 129/71 10/16/18 09:00 Room Air 10/16/18 08:20 98.6 10/16/18 08:00 98.6 58 18 129/71 (90) 98 10/16/18 04:00 52 10/16/18 04:00 97.0 52 18 109/61 (77) 98 10/16/18 00:00 50 10/16/18 00:00 97.4 50 18 113/75 (88) 98 10/15/18 21:00 Room Air 10/15/18 20:00 58 10/15/18 20:00 97.7 58 18 104/57 (73) 98 10/15/18 16:00 98.4 52 18 103/67 (79) 99 10/15/18 15:34 58 10/15/18 12:00 97.5 58 20 108/70 (83) 97 10/15/18 11:31 51 Intake and Output 10/15/18 10/16/18 18:59 06:59 Intake Total 120 ml Output Total 300 ml Balance -180 ml Intake Oral 120 ml Output Urine Total 300 ml # Voids 1 2 Laboratory Tests 10/16/18 05:59: White Blood Count 6.9, Red Blood Count 4.32L, Hemoglobin 12.4L, Hematocrit 38.7L , Mean Corpuscular Volume 89, Mean Corpuscular Hemoglobin 28.7, Mean Corpuscular Hemoglobin Concent 32.0, Red Cell Distribution Width 14.3, Platelet Count 248, Mean Platelet Volume 5.6L, Neutrophils (%) (Auto) 55.1, Lymphocytes ( %) (Auto) 28.7, Monocytes (%) (Auto) 9.2, Eosinophils (%) (Auto) 5.6H, Basophils (%) (Auto) 1.4, Sodium Level 139, Potassium Level 4.0, Chloride Level 104, Carbon Dioxide Level 29, Anion Gap 6, Blood Urea Nitrogen 14, Creatinine 1.2, Estimat Glomerular Filtration Rate > 60, Glucose Level 100, Calcium Level 9.2, Iron Level 45L, Total Iron Binding Capacity 364, Percent Iron Saturation 12L, Unsaturated Iron Binding 319, Ferritin 28, Total Bilirubin 0.4, Aspartate Amino Transf (AST/SGOT) 19, Alanine Aminotransferase (ALT/SGPT) 17, Alkaline Phosphatase 80, Total Protein 7.4, Albumin 3.4, Globulin 4.0, Albumin/Globulin Ratio 0.9L Height (Feet): 6 Height (Inches): 1.00 Weight (Pounds): 180 Karie Newman MD Oct 16, 2018 09:58
--- NOTE | 2018-10-16 10:47 | GI Progress Note ---
Assessment/Plan Problems: (1) GERD (gastroesophageal reflux disease) ICD Codes: K21.9 - Gastro-esophageal reflux disease without esophagitis SNOMED: 045151055 (2) Cocaine abuse ICD Codes: F14.10 - Cocaine abuse, uncomplicated SNOMED: 19855996 (3) Abdominal pain ICD Codes: R10.9 - Unspecified abdominal pain SNOMED: 28121622 (4) Chest pain ICD Codes: R07.9 - Chest pain, unspecified SNOMED: 44526493 Qualifiers: Qualified Codes: R07.9 - Chest pain, unspecified Status: stable, unchanged Status Narrative Discussed with Dr. Sinha. Assessment/Plan Will consider endoscopy pending cardiac work-up, pending stress test today surgical notes reviewed Anemia work-up PRN transfusions PPI Advance diet as tolerated Zofran as needed venofer Follow labs The patient was seen and examined at bedside and all new and available data was reviewed in the patients chart. I agree with the above findings, impression and plan. (Patient seen earlier today. Signature stamp does not reflect patient encounter time.). - Irvin Sinha MD Subjective Gastrointestinal/Abdominal: Reports: no symptoms Objective Last 24 Hour Vital Signs Date Time Temp Pulse Resp B/P (MAP) Pulse Ox O2 Delivery O2 Flow Rate FiO2 10/16/18 09:00 58 129/71 10/16/18 09:00 Room Air 10/16/18 08:20 98.6 10/16/18 08:00 98.6 58 18 129/71 (90) 98 10/16/18 08:00 69 10/16/18 04:00 52 10/16/18 04:00 97.0 52 18 109/61 (77) 98 10/16/18 00:00 50 10/16/18 00:00 97.4 50 18 113/75 (88) 98 10/15/18 21:00 Room Air 10/15/18 20:00 58 10/15/18 20:00 97.7 58 18 104/57 (73) 98 10/15/18 16:00 98.4 52 18 103/67 (79) 99 10/15/18 15:34 58 10/15/18 12:00 97.5 58 20 108/70 (83) 97 10/15/18 11:31 51 Intake and Output 10/15/18 10/16/18 18:59 06:59 Intake Total 120 ml Output Total 300 ml Balance -180 ml Intake Oral 120 ml Output Urine Total 300 ml # Voids 1 2 Laboratory Tests Test 10/16/18 05:59 White Blood Count 6.9 K/UL (4.8-10.8) Red Blood Count 4.32 M/UL (4.70-6.10) L Hemoglobin 12.4 G/DL (14.2-18.0) L Hematocrit 38.7 % (42.0-52.0) L Mean Corpuscular Volume 89 FL (80-99) Mean Corpuscular Hemoglobin 28.7 PG (27.0-31.0) Mean Corpuscular Hemoglobin Concent 32.0 G/DL (32.0-36.0) Red Cell Distribution Width 14.3 % (11.6-14.8) Platelet Count 248 K/UL (150-450) Mean Platelet Volume 5.6 FL (6.5-10.1) L Neutrophils (%) (Auto) 55.1 % (45.0-75.0) Lymphocytes (%) (Auto) 28.7 % (20.0-45.0) Monocytes (%) (Auto) 9.2 % (1.0-10.0) Eosinophils (%) (Auto) 5.6 % (0.0-3.0) H Basophils (%) (Auto) 1.4 % (0.0-2.0) Sodium Level 139 MMOL/L (136-145) Potassium Level 4.0 MMOL/L (3.5-5.1) Chloride Level 104 MMOL/L (98-107) Carbon Dioxide Level 29 MMOL/L (21-32) Anion Gap 6 mmol/L (5-15) Blood Urea Nitrogen 14 mg/dL (7-18) Creatinine 1.2 MG/DL (0.55-1.30) Estimat Glomerular Filtration Rate > 60 mL/min (>60) Glucose Level 100 MG/DL (74-106) Calcium Level 9.2 MG/DL (8.5-10.1) Iron Level 45 ug/dL (50-175) L Total Iron Binding Capacity 364 ug/dL (250-450) Percent Iron Saturation 12 % (15-50) L Unsaturated Iron Binding 319 ug/dL (112-346) Ferritin 28 NG/ML (8-388) Total Bilirubin 0.4 MG/DL (0.2-1.0) Aspartate Amino Transf (AST/SGOT) 19 U/L (15-37) Alanine Aminotransferase (ALT/SGPT) 17 U/L (12-78) Alkaline Phosphatase 80 U/L (46-116) Total Protein 7.4 G/DL (6.4-8.2) Albumin 3.4 G/DL (3.4-5.0) Globulin 4.0 g/dL Albumin/Globulin Ratio 0.9 (1.0-2.7) L Height (Feet): 6 Height (Inches): 1.00 Weight (Pounds): 180 General Appearance: WD/WN, no apparent distress, alert Cardiovascular: normal rate Respiratory/Chest: normal breath sounds, no respiratory distress Abdominal Exam: normal bowel sounds, non tender, soft Extremities: normal range of motion, non-tender Candelario Cabrera NP Oct 16, 2018 10:47
[2018-10-16] MEDS ORDERED: Lexiscan 0.4mg/5ml syringe IV PRN (11:00)
[2018-10-16 12:00] VITALS: BP 123/61
[2018-10-16] MEDS ORDERED: Sennosides 8.6mg tab ORAL PRN (12:00)
[2018-10-16] MEDS: Docusate 100mg cap ORAL SCH ×2 (12:17→17:07)
--- NOTE | 2018-10-16 12:55 | Cardiology Progress Note ---
Assessment/Plan Status: doing well, stable Assessment/Plan Assessment/Plan Status: stable Assessment/Plan: Assessment: (1) Cocaine abuse (2) Abdominal pain (3) Acute alcoholic intoxication (4) Chest pain Plan: Given risk factor HTN/Smoking and symptoms will opt for exercise echocardiogram Nitro prn Hold aspirin given anemia and possible GI bleed Statin Subjective Cardiovascular: Reports: no symptoms Respiratory: Reports: no symptoms Gastrointestinal/Abdominal: Reports: no symptoms Genitourinary: Reports: no symptoms Subjective Coverage for [place] NO acute events, awaiting stress test. Still has chest pain Objective Last 24 Hour Vital Signs Date Time Temp Pulse Resp B/P (MAP) Pulse Ox O2 Delivery O2 Flow Rate FiO2 10/16/18 12:00 99.4 50 20 123/61 (81) 94 10/16/18 09:00 58 129/71 10/16/18 09:00 Room Air 10/16/18 08:20 98.6 10/16/18 08:00 98.6 58 18 129/71 (90) 98 10/16/18 08:00 69 10/16/18 04:00 52 10/16/18 04:00 97.0 52 18 109/61 (77) 98 10/16/18 00:00 50 10/16/18 00:00 97.4 50 18 113/75 (88) 98 10/15/18 21:00 Room Air 10/15/18 20:00 58 10/15/18 20:00 97.7 58 18 104/57 (73) 98 10/15/18 16:00 98.4 52 18 103/67 (79) 99 10/15/18 15:34 58 General Appearance: no apparent distress, alert EENT: PERRL/EOMI, normal ENT inspection, TMs normal, pharynx normal Neck: non-tender, normal alignment, supple, normal inspection, no JVD Rhythm: SB Cardiovascular: normal peripheral pulses, normal rate, regular rhythm Respiratory/Chest: chest wall non-tender, lungs clear, normal breath sounds Abdomen: normal bowel sounds, non tender, soft, no organomegaly, no mass Extremities: normal range of motion, non-tender, normal inspection, no calf tenderness, no swelling 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, no motor/sensory deficits Intake and Output 10/15/18 10/16/18 19:00 07:00 Intake Total 120 ml Output Total 300 ml Balance -180 ml Intake Oral 120 ml Output Urine Total 300 ml # Voids 1 2 Laboratory Tests Test 10/16/18 05:59 White Blood Count 6.9 K/UL (4.8-10.8) Red Blood Count 4.32 M/UL (4.70-6.10) L Hemoglobin 12.4 G/DL (14.2-18.0) L Hematocrit 38.7 % (42.0-52.0) L Mean Corpuscular Volume 89 FL (80-99) Mean Corpuscular Hemoglobin 28.7 PG (27.0-31.0) Mean Corpuscular Hemoglobin Concent 32.0 G/DL (32.0-36.0) Red Cell Distribution Width 14.3 % (11.6-14.8) Platelet Count 248 K/UL (150-450) Mean Platelet Volume 5.6 FL (6.5-10.1) L Neutrophils (%) (Auto) 55.1 % (45.0-75.0) Lymphocytes (%) (Auto) 28.7 % (20.0-45.0) Monocytes (%) (Auto) 9.2 % (1.0-10.0) Eosinophils (%) (Auto) 5.6 % (0.0-3.0) H Basophils (%) (Auto) 1.4 % (0.0-2.0) Sodium Level 139 MMOL/L (136-145) Potassium Level 4.0 MMOL/L (3.5-5.1) Chloride Level 104 MMOL/L (98-107) Carbon Dioxide Level 29 MMOL/L (21-32) Anion Gap 6 mmol/L (5-15) Blood Urea Nitrogen 14 mg/dL (7-18) Creatinine 1.2 MG/DL (0.55-1.30) Estimat Glomerular Filtration Rate > 60 mL/min (>60) Glucose Level 100 MG/DL (74-106) Calcium Level 9.2 MG/DL (8.5-10.1) Iron Level 45 ug/dL (50-175) L Total Iron Binding Capacity 364 ug/dL (250-450) Percent Iron Saturation 12 % (15-50) L Unsaturated Iron Binding 319 ug/dL (112-346) Ferritin 28 NG/ML (8-388) Total Bilirubin 0.4 MG/DL (0.2-1.0) Aspartate Amino Transf (AST/SGOT) 19 U/L (15-37) Alanine Aminotransferase (ALT/SGPT) 17 U/L (12-78) Alkaline Phosphatase 80 U/L (46-116) Total Protein 7.4 G/DL (6.4-8.2) Albumin 3.4 G/DL (3.4-5.0) Globulin 4.0 g/dL Albumin/Globulin Ratio 0.9 (1.0-2.7) L Rocky Mcwilliams MD Oct 16, 2018 12:55
--- NOTE | 2018-10-16 13:53 | Surgery Progress Note ---
Surgery Progress Note Subjective Additional Comments no acute events comfortable stable labs noted missaelb lesvia Objective Last 24 Hour Vital Signs Date Time Temp Pulse Resp B/P (MAP) Pulse Ox O2 Delivery O2 Flow Rate FiO2 10/16/18 12:00 99.4 50 20 123/61 (81) 94 10/16/18 12:00 51 10/16/18 09:00 58 129/71 10/16/18 09:00 Room Air 10/16/18 08:20 98.6 10/16/18 08:00 98.6 58 18 129/71 (90) 98 10/16/18 08:00 69 10/16/18 04:00 52 10/16/18 04:00 97.0 52 18 109/61 (77) 98 10/16/18 00:00 50 10/16/18 00:00 97.4 50 18 113/75 (88) 98 10/15/18 21:00 Room Air 10/15/18 20:00 58 10/15/18 20:00 97.7 58 18 104/57 (73) 98 10/15/18 16:00 98.4 52 18 103/67 (79) 99 10/15/18 15:34 58 I&O Intake and Output 10/15/18 10/16/18 19:00 07:00 Intake Total 120 ml Output Total 300 ml Balance -180 ml Intake Oral 120 ml Output Urine Total 300 ml # Voids 1 2 Dressing: other Wound: other Drains: other Cardiovascular: RSR Respiratory: clear Abdomen: soft, present bowel sounds, decreased bowel sounds Extremities: no cyanosis Laboratory Tests Test 10/16/18 05:59 White Blood Count 6.9 K/UL (4.8-10.8) Red Blood Count 4.32 M/UL (4.70-6.10) L Hemoglobin 12.4 G/DL (14.2-18.0) L Hematocrit 38.7 % (42.0-52.0) L Mean Corpuscular Volume 89 FL (80-99) Mean Corpuscular Hemoglobin 28.7 PG (27.0-31.0) Mean Corpuscular Hemoglobin Concent 32.0 G/DL (32.0-36.0) Red Cell Distribution Width 14.3 % (11.6-14.8) Platelet Count 248 K/UL (150-450) Mean Platelet Volume 5.6 FL (6.5-10.1) L Neutrophils (%) (Auto) 55.1 % (45.0-75.0) Lymphocytes (%) (Auto) 28.7 % (20.0-45.0) Monocytes (%) (Auto) 9.2 % (1.0-10.0) Eosinophils (%) (Auto) 5.6 % (0.0-3.0) H Basophils (%) (Auto) 1.4 % (0.0-2.0) Sodium Level 139 MMOL/L (136-145) Potassium Level 4.0 MMOL/L (3.5-5.1) Chloride Level 104 MMOL/L (98-107) Carbon Dioxide Level 29 MMOL/L (21-32) Anion Gap 6 mmol/L (5-15) Blood Urea Nitrogen 14 mg/dL (7-18) Creatinine 1.2 MG/DL (0.55-1.30) Estimat Glomerular Filtration Rate > 60 mL/min (>60) Glucose Level 100 MG/DL (74-106) Calcium Level 9.2 MG/DL (8.5-10.1) Iron Level 45 ug/dL (50-175) L Total Iron Binding Capacity 364 ug/dL (250-450) Percent Iron Saturation 12 % (15-50) L Unsaturated Iron Binding 319 ug/dL (112-346) Ferritin 28 NG/ML (8-388) Total Bilirubin 0.4 MG/DL (0.2-1.0) Aspartate Amino Transf (AST/SGOT) 19 U/L (15-37) Alanine Aminotransferase (ALT/SGPT) 17 U/L (12-78) Alkaline Phosphatase 80 U/L (46-116) Total Protein 7.4 G/DL (6.4-8.2) Albumin 3.4 G/DL (3.4-5.0) Globulin 4.0 g/dL Albumin/Globulin Ratio 0.9 (1.0-2.7) L Plan Problems: (1) Abdominal pain Assessment & Plan: This is a 58-year-old male with abdominal pain. Currently being admitted and treated for chest pain began to complain of abdominal discomfort. States is mainly left upper quadrant underneath his ribs. States he was told he has a ventral hernia and believes that this may be was causing his discomfort. States he had a CT scan in the past here and asked me to evaluate it. On clinical evaluation there is no ventral hernia identified. There are no inguinal hernias and right-sided hernia repair with mesh seems to be appropriate postoperatively patient will need to follow-up with his primary surgeon for further evaluation of that. Currently no nausea vomiting fever chills. No tenderness peritonitis on examination. Bowel sounds are noted. I reviewed the CT scan from prior and no acute abnormalities are noted. Patient possibly with colic or enteritis. No acute surgical intervention planned. KUB okay. Okay for diet. (2) Ulcer of left foot Assessment & Plan: Patient with a ulcer at the distal aspect of his left great toe. States he was even unaware of it but likely due to trauma. Currently dry and no signs of infection. Does not seem to have significant peripheral vascular disease. Pulses are palpable. Also seems to have callused over. No history of diabetes. No acute intervention necessary. Be mindful and watching of trauma to his lower extremities. We will follow with recommendations. Shade Cullen Oct 16, 2018 13:53
[2018-10-16 16:00] VITALS: BP 126/83
--- NOTE | 2018-10-16 17:51 | Cardiology Report ---
APPROVED REPORT EXAM: Two-dimensional and M-mode echocardiogram with Doppler and color Doppler. INDICATION Bradycardia M-Mode DIMENSIONS IVSd1.4 (0.7-1.1cm)Left Atrium (MM)2.9 (1.6-4.0cm) LVDd3.1 (3.5-5.6cm)Aortic Root2.3 (2.0-3.7cm) PWd1.1 (0.7-1.1cm)Aortic Cusp Exc.1.6 (1.5-2.0cm) IVSs1.9 cm LVDs1.8 (2.5-4.0cm) PWs1.0 cm Technically difficult study due to cardiac position (angle). Normal left ventricular chamber size, systolic function and wall motion to extent visualized. Left ventricular ejection fraction estimated to be 60%. No evidence of left ventricular hypertrophy. No evidence of pericardial effusion. All other cardiac chamber sizes are within normal limits. Aortic valve calcification with normal cusp excursion . Thickened mitral valve leaflets with normal excursion. Mitral annulus and aortic root calcification. Normal pulmonic valve structure. Normal tricuspid valve structure. IVC at normal size with physiologic collapse. A color flow and spectral Doppler study was performed and revealed: No aortic insufficiency. Trace mitral regurgitation. reduced left ventricular relaxation c/w impaired relaxation diastolic dysfunction. Trace tricuspid regurgitation. Tricuspid systolic velocities suggests peak right ventricular systolic pressure of 10 mmHg.
--- NOTE | 2018-10-16 19:25 | NUR ---
HAND-OFF: Report given to Jamaal Castillo. Plan of care endorsed.
--- NOTE | 2018-10-16 19:30 | NUR ---
NURSE NOTES: Received patient from Darcy GE. Patient in bed, alert and oriented x 4. Patient is ambulatory. On room air, no s/s of respiratory distress. PIV on right forearm 22 gauge intact, patent, saline locked.
[2018-10-16 20:00] VITALS: BP 127/78
[2018-10-16] MEDS: Morphine Sulfate 2mg/ml Inj(IV/IM USE ONLY) IVP PRN (20:24)
--- NOTE | 2018-10-16 20:25 | NUR ---
NURSE NOTES: Patient c/o left arm pain, and that previous pain medications are not working. Administered morphine 2mg ivp prn for severe pain 12/10.
[2018-10-16] MEDS ORDERED: Iron Sucrose 100 MG in NS 55 ML IV SCH (21:00)
[2018-10-16] MEDS ORDERED: Miralax 17gm pkt ORAL SCH (21:00)
--- NOTE | 2018-10-16 22:32 | NUR ---
NURSE NOTES: Patient asleep comfortably, no s/s of pain.
[2018-10-17] VITALS: BP 112/72
[2018-10-17 04:00] VITALS: BP 117/72
--- NOTE | 2018-10-17 07:46 | NUR ---
NURSE NOTES: Received report from LUMA Castillo. Patient in bed resting, no active s/s cardiac, respiratory distress noticed at this time. Patient AOx4, patient on room air, SB with HR 56. IV on right FA 22G, asymptomatic, patent, intact. Endorsed need of OB stool collection. Bed in lowest position, side rails upx2, call light within reach. Will continue to monitor.
[2018-10-17 08:00] VITALS: BP 123/78
[2018-10-17] MEDS: Docusate 100mg cap ORAL SCH ×2 (08:17→13:00)
[2018-10-17] MEDS: Heparin 5000 units/ml inj SUBQ SCH (08:19)
[2018-10-17 08:43] LABS: BASOPHILS % (AUTO) 1.4 % (0.0-2.0); EOSINOPHILS % (AUTO) 4.9 % (0.0-3.0); HEMATOCRIT 42.6 % (42.0-52.0); HEMOGLOBIN 13.6 G/DL (14.2-18.0); MEAN CORPUSCULAR VOLUME 88 FL (80-99); MONOCYTES % (AUTO) 9.9 % (1.0-10.0); NEUTROPHILS % (AUTO) 51.8 % (45.0-75.0); PLATELET COUNT 226 K/UL (150-450); RED BLOOD COUNT 4.81 M/UL (4.70-6.10); RED CELL DISTRIBUTION WIDTH 14.1 % (11.6-14.8); WHITE BLOOD COUNT 5.9 K/UL (4.8-10.8)
--- NOTE | 2018-10-17 08:51 | General Progress Note ---
Assessment/Plan Status: doing well, stable Assessment/Plan: (1) GERD (gastroesophageal reflux disease) ICD Codes: K21.9 - Gastro-esophageal reflux disease without esophagitis SNOMED: 714730062 (2) Cocaine abuse ICD Codes: F14.10 - Cocaine abuse, uncomplicated SNOMED: 96757166 (3) Abdominal pain ICD Codes: R10.9 - Unspecified abdominal pain SNOMED: 89977110 (4) Chest pain ICD Codes: R07.9 - Chest pain, unspecified SNOMED: 62949076 Qualifiers: Qualified Codes: R07.9 - Chest pain, unspecified Status: stable, unchanged Status Narrative Discussed with Dr. Sinha. Assessment/Plan surgical notes reviewed Anemia work-up PRN transfusions PPI Zofran as needed venofer Follow labs add lactulose to colace and miralax Subjective ROS Limited/Unobtainable: Yes Allergies: Coded Allergies: PENICILLINS (Verified Allergy, Unknown, 09/09/18) TETRACYCLINE (Verified Allergy, Unknown, 01/16/16) Objective Last 24 Hour Vital Signs Date Time Temp Pulse Resp B/P (MAP) Pulse Ox O2 Delivery O2 Flow Rate FiO2 10/17/18 08:18 62 123/78 10/17/18 08:00 98.0 55 18 123/78 (93) 93 10/17/18 04:00 56 10/17/18 04:00 97.2 51 18 117/72 (87) 98 10/17/18 00:00 98.1 49 18 112/72 (85) 99 10/17/18 00:00 49 10/16/18 23:48 49 10/16/18 21:00 Room Air 10/16/18 20:00 97.9 56 18 127/78 (94) 98 10/16/18 19:47 60 10/16/18 16:00 98.2 56 18 126/83 (97) 97 10/16/18 16:00 60 10/16/18 15:17 99.4 10/16/18 12:00 99.4 50 20 123/61 (81) 94 10/16/18 12:00 51 10/16/18 09:00 58 129/71 10/16/18 09:00 Room Air Intake and Output 10/16/18 10/17/18 19:00 07:00 Intake Total 140 ml 140 ml Output Total 1400 ml Balance 140 ml -1260 ml Intake Oral 140 ml 140 ml Output Urine Total 1400 ml # Voids 3 4 Laboratory Tests 10/17/18 07:07: White Blood Count 5.9, Red Blood Count 4.81, Hemoglobin 13.6L, Hematocrit 42.6, Mean Corpuscular Volume 88, Mean Corpuscular Hemoglobin 28.2, Mean Corpuscular Hemoglobin Concent 32.0, Red Cell Distribution Width 14.1, Platelet Count 226, Mean Platelet Volume 5.5L, Neutrophils (%) (Auto) 51.8, Lymphocytes (%) (Auto) 32.0, Monocytes (%) (Auto) 9.9, Eosinophils (%) (Auto) 4.9H, Basophils (%) (Auto ) 1.4, Sodium Level [Pending], Potassium Level [Pending], Chloride Level [ Pending], Carbon Dioxide Level [Pending], Blood Urea Nitrogen [Pending], Creatinine [Pending], Estimat Glomerular Filtration Rate [Pending], Glucose Level [Pending], Calcium Level [Pending], Total Bilirubin [Pending], Aspartate Amino Transf (AST/SGOT) [Pending], Alanine Aminotransferase (ALT/SGPT) [Pending] , Alkaline Phosphatase [Pending], Total Protein [Pending], Albumin [Pending], Globulin [Pending] Height (Feet): 6 Height (Inches): 1.00 Weight (Pounds): 180 General Appearance: alert EENT: normal ENT inspection Neck: supple Cardiovascular: normal rate Respiratory/Chest: decreased breath sounds Abdomen: normal bowel sounds, non tender, soft Extremities: non-tender Irvin Sinha MD Oct 17, 2018 08:51
[2018-10-17 09:15] LABS: ALANINE AMINOTRANSFERASE 18 U/L (12-78); ALBUMIN 3.5 G/DL (3.4-5.0); ALBUMIN/GLOBULIN RATIO 0.9 (1.0-2.7); ALKALINE PHOSPHATASE 90 U/L (46-116); ANION GAP 11 mmol/L (5-15); ASPARTATE AMINO TRANSFERASE 20 U/L (15-37); BILIRUBIN,TOTAL 0.7 MG/DL (0.2-1.0); BLOOD UREA NITROGEN 14 mg/dL (7-18); CALCIUM 9.3 MG/DL (8.5-10.1); CARBON DIOXIDE 25 MMOL/L (21-32); CHLORIDE 102 MMOL/L (98-107); POTASSIUM 4.6 MMOL/L (3.5-5.1); SODIUM 138 MMOL/L (136-145)
[2018-10-17] MEDS: Lactulose 10gm/15ml UDC ORAL SCH ×2 (09:34→13:00)
--- NOTE | 2018-10-17 09:57 | NUR ---
NURSE NOTES: Dr. Sinha made aware patient c/o constipation and requesting for MOM. Per Dr. Sinha, Milk of Mag once PO . Order noted, entered carried out. Will continue to monitor.
[2018-10-17] MEDS ORDERED: Milk of Magnesia 30ml Ud ORAL SCH (10:00)
--- NOTE | 2018-10-17 10:07 | Cardiology Progress Note ---
Assessment/Plan Status: stable Assessment/Plan Assessment/Plan Status: stable Assessment/Plan: Assessment: (1) Cocaine abuse (2) Abdominal pain (3) Acute alcoholic intoxication (4) Chest pain Plan: Given risk factor HTN/Smoking and symptoms will opt for exercise echocardiogram TTE: Left ventricular ejection fraction estimated to be 60%. Nitro prn Hold aspirin given anemia and possible GI bleed Statin Subjective Cardiovascular: Reports: no symptoms Respiratory: Reports: no symptoms Gastrointestinal/Abdominal: Reports: no symptoms Genitourinary: Reports: no symptoms Subjective Coverage for [place] NO acute events, awaiting stress test. Still has chest pain Objective Last 24 Hour Vital Signs Date Time Temp Pulse Resp B/P (MAP) Pulse Ox O2 Delivery O2 Flow Rate FiO2 10/17/18 09:00 Room Air 10/17/18 08:18 62 123/78 10/17/18 08:00 61 10/17/18 08:00 98.0 55 18 123/78 (93) 93 10/17/18 04:00 56 10/17/18 04:00 97.2 51 18 117/72 (87) 98 10/17/18 00:00 98.1 49 18 112/72 (85) 99 10/17/18 00:00 49 10/16/18 23:48 49 10/16/18 21:00 Room Air 10/16/18 20:00 97.9 56 18 127/78 (94) 98 10/16/18 19:47 60 10/16/18 16:00 98.2 56 18 126/83 (97) 97 10/16/18 16:00 60 10/16/18 15:17 99.4 10/16/18 12:00 99.4 50 20 123/61 (81) 94 10/16/18 12:00 51 General Appearance: no apparent distress, alert EENT: PERRL/EOMI, normal ENT inspection, TMs normal, pharynx normal Neck: non-tender, normal alignment, supple, normal inspection, no JVD Rhythm: NSR Cardiovascular: normal peripheral pulses, normal rate, regular rhythm Respiratory/Chest: chest wall non-tender, lungs clear Abdomen: normal bowel sounds, non tender, soft, no organomegaly Extremities: normal range of motion, non-tender Neurologic: prevention coordinator II-XII grossly normal, no motor/sensory deficits Intake and Output 10/16/18 10/17/18 19:00 07:00 Intake Total 140 ml 140 ml Output Total 1400 ml Balance 140 ml -1260 ml Intake Oral 140 ml 140 ml Output Urine Total 1400 ml # Voids 3 4 Laboratory Tests Test 10/17/18 07:07 White Blood Count 5.9 K/UL (4.8-10.8) Red Blood Count 4.81 M/UL (4.70-6.10) Hemoglobin 13.6 G/DL (14.2-18.0) L Hematocrit 42.6 % (42.0-52.0) Mean Corpuscular Volume 88 FL (80-99) Mean Corpuscular Hemoglobin 28.2 PG (27.0-31.0) Mean Corpuscular Hemoglobin Concent 32.0 G/DL (32.0-36.0) Red Cell Distribution Width 14.1 % (11.6-14.8) Platelet Count 226 K/UL (150-450) Mean Platelet Volume 5.5 FL (6.5-10.1) L Neutrophils (%) (Auto) 51.8 % (45.0-75.0) Lymphocytes (%) (Auto) 32.0 % (20.0-45.0) Monocytes (%) (Auto) 9.9 % (1.0-10.0) Eosinophils (%) (Auto) 4.9 % (0.0-3.0) H Basophils (%) (Auto) 1.4 % (0.0-2.0) Sodium Level 138 MMOL/L (136-145) Potassium Level 4.6 MMOL/L (3.5-5.1) Chloride Level 102 MMOL/L (98-107) Carbon Dioxide Level 25 MMOL/L (21-32) Anion Gap 11 mmol/L (5-15) Blood Urea Nitrogen 14 mg/dL (7-18) Creatinine 1.0 MG/DL (0.55-1.30) Estimat Glomerular Filtration Rate > 60 mL/min (>60) Glucose Level 71 MG/DL (74-106) L Calcium Level 9.3 MG/DL (8.5-10.1) Total Bilirubin 0.7 MG/DL (0.2-1.0) Aspartate Amino Transf (AST/SGOT) 20 U/L (15-37) Alanine Aminotransferase (ALT/SGPT) 18 U/L (12-78) Alkaline Phosphatase 90 U/L (46-116) Total Protein 7.4 G/DL (6.4-8.2) Albumin 3.5 G/DL (3.4-5.0) Globulin 3.9 g/dL Albumin/Globulin Ratio 0.9 (1.0-2.7) L Rocky Mcwilliams MD Oct 17, 2018 10:07
--- NOTE | 2018-10-17 10:59 | NUR ---
NURSE NOTES: Dr. Sinha made aware patient does not want Milk of mag at this time, but requesting for magnesium citrate. Per Dr. Sinha, change MOM to magnesium citrate PO once. Order noted, entered, carried out.
--- NOTE | 2018-10-17 11:30 | NUR ---
NURSE NOTES: Dr. Mcwilliams made aware per Dr. Newman discharge patient if cleared by cardiology. Per Dr. Mcwilliams, okay to discharge in cardiology stand point. Dr. Newman made aware cardiology cleared the patient.
[2018-10-17] MEDS: traMADol 50mg tab ORAL PRN (11:32)
[2018-10-17 12:00] VITALS: BP 117/56
[2018-10-17] MEDS ORDERED: Magnesium Citrate Liq Btl ORAL ONE (12:00)
--- NOTE | 2018-10-17 12:00 | NUR ---
NURSE NOTES: Per Dr. Newman, discharge patient and advise to patient to follow up with Dr. Newman or PCP in one week, and give patient contact info, and per Dr. Newman will do medication reconcile.
--- NOTE | 2018-10-17 14:00 | NUR ---
NURSE NOTES: Per Dr. Newman, discharge patient home and advise to patient to follow up with Dr. Newman or PCP in one week after discharge. Patient informed contact info of Dr. Newman. Office address : [address] [place], [place] [address], [address] [place] [address] Tele: [phone]. Dr. Newman made aware of patient's preference pharmacy which is [facility] located at [address] [place] [address], tele [phone]. Per Dr. Newman, will call pharmacy directly if any medication is needed after discharge. Order noted, entered, carried out. Will continue to monitor.
--- NOTE | 2018-10-17 14:12 | NUR ---
NURSE NOTES: Patient discharged to home per Dr. Newman, and informed patient to follow up with Dr. Newman in one week at [address] [facility] [address] [place] [address] Tele: [phone]. Patient's ID removed and placed in shredder. IV removed and well cleaner returned to ophthalmic tech. Patient given taxi voucher per patient's preference in a stable condition. Patient discharge with all belongings. Addendum: 10/17/18 at 1417 by SMITHA RUFFIN RN medication brought by patient returned to patient.
--- NOTE | 2018-10-17 19:39 | General Progress Note ---
Assessment/Plan Status: stable Assessment/Plan: S: I am in pain O: Seems comfortable, no severe chest pain HYSICAL EXAMINATION: HEAD AND NECK: Atraumatic and normocephalic. CHEST: Clear to auscultation.HEART: S1, S2. Regular rate and rhythm. ABDOMEN: Soft. No organomegaly.MUSCULOSKELETAL: No gross lateralized motor deficit. NEUROLOGY: Awake, alert, and oriented x3. Labs: reviwed and reconcilled 1. Acute coronary syndrome. 2. Sinus bradycardia. 3. Chronic pain. 4. Renal failure. 5. Cocaine abuse. 6. GI and DVT prophylaxis. 7. Anemia. Plan: DC CCB, start diuretic Will monitor BP Notes from cardiology reviewed ok to followup as o/p Subjective Allergies: Coded Allergies: PENICILLINS (Verified Allergy, Unknown, 09/09/18) TETRACYCLINE (Verified Allergy, Unknown, 01/16/16) Objective Last 24 Hour Vital Signs Date Time Temp Pulse Resp B/P (MAP) Pulse Ox O2 Delivery O2 Flow Rate FiO2 10/17/18 12:00 49 10/17/18 12:00 98.6 57 18 117/56 (76) 97 10/17/18 09:00 Room Air 10/17/18 08:18 62 123/78 10/17/18 08:00 61 10/17/18 08:00 98.0 55 18 123/78 (93) 93 10/17/18 04:00 56 10/17/18 04:00 97.2 51 18 117/72 (87) 98 10/17/18 00:00 98.1 49 18 112/72 (85) 99 10/17/18 00:00 49 10/16/18 23:48 49 10/16/18 21:00 Room Air 10/16/18 20:00 97.9 56 18 127/78 (94) 98 10/16/18 19:47 60 Intake and Output 10/16/18 10/17/18 18:59 06:59 Intake Total 140 ml Output Total 1400 ml Balance 140 ml -1400 ml Intake Oral 140 ml Output Urine Total 1400 ml # Voids 3 4 Laboratory Tests 10/17/18 07:07: White Blood Count 5.9, Red Blood Count 4.81, Hemoglobin 13.6L, Hematocrit 42.6, Mean Corpuscular Volume 88, Mean Corpuscular Hemoglobin 28.2, Mean Corpuscular Hemoglobin Concent 32.0, Red Cell Distribution Width 14.1, Platelet Count 226, Mean Platelet Volume 5.5L, Neutrophils (%) (Auto) 51.8, Lymphocytes (%) (Auto) 32.0, Monocytes (%) (Auto) 9.9, Eosinophils (%) (Auto) 4.9H, Basophils (%) (Auto ) 1.4, Sodium Level 138, Potassium Level 4.6, Chloride Level 102, Carbon Dioxide Level 25, Anion Gap 11, Blood Urea Nitrogen 14, Creatinine 1.0, Estimat Glomerular Filtration Rate > 60, Glucose Level 71L, Calcium Level 9.3, Total Bilirubin 0.7, Aspartate Amino Transf (AST/SGOT) 20, Alanine Aminotransferase ( ALT/SGPT) 18, Alkaline Phosphatase 90, Total Protein 7.4, Albumin 3.5, Globulin 3.9, Albumin/Globulin Ratio 0.9L Height (Feet): 6 Height (Inches): 1.00 Weight (Pounds): 180 Karie Newman MD Oct 17, 2018 19:39
--- NOTE | 2018-10-18 09:08 | NUR ---
CASE MANAGEMENT: CM review and clinical information (face sheet/ ER MD notes/ H&P/DC instructions) faxed to [employer]AN[facility] BLACK @ [phone]. E# [id number].
--- NOTE | 2018-10-19 09:24 | Discharge Summary ---
Discharge Summary Discharge Summary _ DATE OF ADMISSION: 10/14/2018 DATE OF DISCHARGE: 10/17/2018 DISCHARGED BY: Dr. Newman REASON FOR ADMISSION: 58 years old male with past medical history of COPD, hypertension, diabetes mellitus, neuropathy, presented with complaint of exertional chest pain, radiating down his left arm, started 3 days ago , was fairly constant , but worsened prior to presentation to ED. Pain described as somewhat positional, severe 9 out of 10 on a scale 1-10. Patient reported smoking cigarettes, but denied doing drugs. He denied fever and cough. He denied headache. He denied prior cardiac work-up. Upon evaluation vital signs were stable. Laboratory work-up revealed no leukocytosis, stable hemoglobin and hematocrit. Stable electrolytes. BUN 17, creatinine 1.4. Stable LFT. Troponin negative. Pro BNP 55. EKG revealed sinus bradycardia , with heart rate 47. No acute ischemic changes. Urine toxicology screen was positive for cocaine. Chest x-ray revealed no acute cardiopulmonary pathology. Patient in the emergency department received 1 dose of nitroglycerin. with relief. Metoprolol was not given due to bradycardia. Patient subsequently was admitted to telemetry floor for further management. CONSULTANTS: circular knife cutter machine Dr. Mcwilliams GI specialist Dr. Sinha [facility] Dr. Cullen [facility] COURSE: Patient admitted to telemetry floor. Extract Mixer closely followed. Serial troponin were negative. EKG revealed no acute ischemic changes. Patient was ruled out for acute myocardial infarction. Echocardiogram demonstrated preserved ejection fraction of 60% with no evidence of left ventricular hypertrophy. No evidence of wall motion abnormality. Right ventricular systolic pressure of 10. Patient undergone exercise echocardiogram stress test. Imaging demonstrates a reversible apical perfusion defect. Calculated post stress ejection fraction 63%. No focal wall motion abnormality. Symptoms resolved, no further chest pain. Patient will need outpatient follow up with circular knife cutter machine for possible cardiac catheterization. Blood pressure was managed with calcium channel jerzy. DVT and GI prophylaxis provided. Pain management was addressed. Nitroglycerin was on board as needed. Aspirin was held due to anemia and possible GI bleeding. Lipid panel was stable. TSH within normal limits. Patient complained of abdominal pain. GI specialist followed. Abdominal x-ray/KUB was unremarkable. Anemia work-up revealed evidence of anemia of iron deficiency. Patient received IV Venofer. GI specialist followed endoscopy as outpatient. Antiemetic provided as needed. Diet was advanced as tolerated. Patient was able to tolerate diet. Hemoglobin and hematocrit were closely monitored with goal to keep hemoglobin above 7. Prior to discharge hemoglobin 13.,6 hematocrit 42.6. Renal parameters and electrolytes were closely monitored. Electrolytes corrected as needed, and nephrotoxins were avoided. Prior to discharge creatinine from 1.4 down to 1.0. General surgeon seen and evaluated patient. Per surgeon after reviewing imaging with no acute surgical intervention was necessarily. Patient also had noted to have a ulcer of the left food, which remained dry without signs of infection. No acute intervention was necessarily. Patient clinically stabilized and was ready for discharge Outpatient follow-up with primary care provider and circular knife cutter machine. FINAL DIAGNOSES: Chest pain Acute coronary syndrome ( reversible apical perfusion defect on stress ECHO) Sinus bradycardia Abdominal pain GERD Cocaine abuse Ulcer of left food Renal failure -resolved Anemia DISCHARGE MEDICATIONS: See Medication Reconciliation list. DISCHARGE INSTRUCTIONS: Patient was discharged home . Follow up with primary care provider in one week . I have been assigned to dictate discharge summary for this account. I was not involved in the patient's management. Jimena Jordan NP Oct 19, 2018 09:23
--- NOTE | 2018-10-19 10:36 | Diagnostic Imaging Report ---
Indications: Chest pain Technique: Single day single isotope protocol utilized. Initially, resting images obtained using IV administration 11 millicuries 99M technetium Myoview. Subsequently, patient underwent lexiscan stress testing. See cardiology report for details. During Donovan infusion, IV administration 33 mCi 99 M technetium Myoview. SPECT and planar images obtained. SPECT images gated to 8 phases of the cardiac cycle were also obtained, and reformatted into cine images for evaluation of ejection fraction. Comparison: none Findings: Per cardiology report, patient experienced no chest pain. Per cardiology report, resting EKG demonstrates sinus bradycardia. No ST-T wave changes reported during infusion. Imaging demonstrates a reversible apical perfusion defect. Calculated post stress ejection fraction 63%. No focal wall motion abnormality Impression: Nonischemic clinical response to pharmacologic stress, per cardiology report Nonischemic electrocardiographic response to pharmacologic stress, per cardiology report Imaging findings are positive for apical ischemia Calculated post stress ejection fraction 63% Preliminary report was provided via the PACS at the time the exam was performed
--- NOTE | 2018-10-19 19:59 | Cardiology Report ---
APPROVED REPORT EKG Measurement Heart [id number] Sinus bradycardia with occasional premature ventricular complexes Otherwise normal ECG
== END 2018-10-17 14:02 | disposition home or self-care (01) | DRG 198 ==
LOC: EMR 10:52 → EDBEDREQ 10:56 → OBSVTOIN 12:24 → 2E 12:24
DX: I24.9 Acute ischemic heart disease, unspecified (principal); F10.129 Alcohol abuse with intoxication, unspecified; F14.10 Cocaine abuse, uncomplicated; D64.9 Anemia, unspecified; R00.1 Bradycardia, unspecified; G89.29 Other chronic pain; K21.9 Gastro-esophageal reflux disease without esophagitis; L97.829 Non-pressure chronic ulcer of other part of left lower leg with unspecified severity; Z88.0 Allergy status to penicillin; Z88.8 Allergy status to other drugs, medicaments and biological substances; R10.12 Left upper quadrant pain
CPT/HCPCS: 36415; 71045; 74018; 78452; 80053; 80061; 80307; 81003; 82550; 82728; 83036; 83540; 83550; 83690; 83880; 84443; 84484; 85025; 85610; 85730; 93005; 93017; 93306; 96374; 96375; 96376; 99284; J2405; J2785

== ENCOUNTER 2019-04-02 11:31 | Emergency (ER) | payer MEDICAID ==
[~2019-04-02] VITALS: Ht 185.4 cm; Wt 79.4 kg
[2019-04-02 11:45] VITALS: BP 133/88
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
[2019-04-02] MEDS ORDERED: Ketorolac 30mg Inj IM ONE (12:00)
[2019-04-02] MEDS ORDERED: Acetaminophen 500mg (ES) tab PO ONE (12:00)
--- NOTE | 2019-04-02 12:13 | NUR ---
ED Nurse Note: Xray at bedside.
--- NOTE | 2019-04-02 15:41 | Diagnostic Imaging Report ---
Indication: left hand pain. Comparison: None Findings: 3 views of the left hand were obtained. Normal alignment is demonstrated. No acute fractures, erosions, or periosteal reaction are seen. Soft tissues are unremarkable. Impression: No acute findings.
--- NOTE | 2019-04-02 15:42 | Diagnostic Imaging Report ---
Indication: Dyspnea Comparison: 10/14/2018 A single view chest radiograph was obtained. Findings: Cardiomediastinal appearance is within normal limits for age. The lungs are clear. Left hemidiaphragm is elevated which appears to be a chronic finding. There are surgical clips at the left lung base. Pulmonary vascularity is appropriate. The diaphragmatic contour is smooth and costophrenic angles are sharp. No pleural effusions are identified. The bones are unremarkable. Impression: No acute findings
--- NOTE | 2019-04-02 15:42 | Diagnostic Imaging Report ---
Indication: left shoulder pain Findings: 3 views of the left shoulder were obtained. Alignment of the left shoulder is normal. No acute fracture is identified. Soft tissues are unremarkable. Impression: No acute injury
[2019-04-02] MEDS ORDERED: IBUPROFEN600 MG ORAL (16:05)
[2019-04-02] MEDS ORDERED: TRAMADOL HCL50 MG ORAL (16:05)
[2019-04-02 16:16] VITALS: BP 128/80
--- NOTE | 2019-04-02 16:16 | NUR ---
ER DISCHARGE NOTE: Patient cleared for DC by Dr. Juan. Sling applied to left arm. Patient verbalized understanding of DC instructions. ID band removed, patient AxO x 4, ambulates with steady gait, all belongings with patient.
== END 2019-04-02 16:16 | disposition home or self-care (01) ==
LOC: EMR 12:15
DX: S09.90XA Unspecified injury of head, initial encounter (principal); S60.222A Contusion of left hand, initial encounter; S40.012A Contusion of left shoulder, initial encounter; S00.83XA Contusion of other part of head, initial encounter; S20.212A Contusion of left front wall of thorax, initial encounter; J44.9 Chronic obstructive pulmonary disease, unspecified; E11.9 Type 2 diabetes mellitus without complications; I11.9 Hypertensive heart disease without heart failure; Y04.8XXA Assault by other bodily force, initial encounter; Y93.9 Activity, unspecified; Y92.9 Unspecified place or not applicable; Z88.0 Allergy status to penicillin; Z88.1 Allergy status to other antibiotic agents
CPT/HCPCS: 71045; 73030; 73130; 96372; J1885; Z7502; 99284

== ENCOUNTER 2019-04-30 11:06 | Emergency (ER) | payer MEDICAID ==
[~2019-04-30] VITALS: Ht 185.4 cm; Wt 80.7 kg
[2019-04-30 11:08] VITALS: BP 129/84
[2019-04-30] MEDS ORDERED: ASPIRIN81 MG ORAL (11:14)
--- NOTE | 2019-04-30 11:16 | NUR ---
ED Nurse Note: patient walked into ED from home c/o diffuse abdominal pain on the upper gastric area radiating to his bilateral flank area and back for 5 days. patient denies any nausea or vomiting or diarrhea. patient is alert awake x4 ambulatory, breathing unlabored and even, speaking in full sentences. patient provided with hospital gown.
[2019-04-30] MEDS ORDERED: Ketorolac 30mg Inj IV ONE (11:30)
[2019-04-30] MEDS ORDERED: DiphenhydrAMINE 50mg/ml Inj IVP ONE (11:30)
[2019-04-30] MEDS ORDERED: Metoclopramide 10mg/2ml Inj IVP ONE (11:30)
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
[2019-04-30 12:05] LABS: APPEARANCE,URINE CLEAR; BILIRUBIN, URINE NEGATIVE (NEGATIVE); COLOR,URINE PALE YELLOW; GLUCOSE, URINE (UA) NEGATIVE (NEGATIVE); KETONES,URINE NEGATIVE (NEGATIVE); LEUKOCYTE ESTERASE ,URINE NEGATIVE (NEGATIVE); NITRITE,URINE NEGATIVE (NEGATIVE); PH,URINE 7 (4.5-8.0); PROTEIN,URINE NEGATIVE (NEGATIVE); UROBILINOGEN,URINE NORMAL MG/DL (0.0-1.0)
[2019-04-30 12:06] LABS: BASOPHILS % (AUTO) 1.2 % (0.0-2.0); EOSINOPHILS % (AUTO) 3.1 % (0.0-3.0); HEMATOCRIT 36.6 % (42.0-52.0); HEMOGLOBIN 11.7 G/DL (14.2-18.0); LYMPHOCYTES % (AUTO) 22.9 % (20.0-45.0); MEAN CORPUSCULAR VOLUME 85 FL (80-99); MONOCYTES % (AUTO) 6.8 % (1.0-10.0); PLATELET COUNT 238 K/UL (150-450); RED CELL DISTRIBUTION WIDTH 15.2 % (11.6-14.8); WHITE BLOOD COUNT 8.1 K/UL (4.8-10.8)
[2019-04-30 12:13] LABS: INR 0.9 (0.9-1.1)
[2019-04-30 12:15] LABS: ANION GAP 9 mmol/L (5-15); BLOOD UREA NITROGEN 17 mg/dL (7-18); CALCIUM 9.3 MG/DL (8.5-10.1); CARBON DIOXIDE 28 MMOL/L (21-32); CHLORIDE 103 MMOL/L (98-107); CREATININE 0.8 MG/DL (0.55-1.30); POTASSIUM 5.9 MMOL/L (3.5-5.1); SODIUM 140 MMOL/L (136-145)
--- NOTE | 2019-04-30 12:18 | NUR ---
ED Nurse Note: Patient was medicated, EKG done.
[2019-04-30 12:26] LABS: ALANINE AMINOTRANSFERASE 21 U/L (12-78); ALBUMIN 3.5 G/DL (3.4-5.0); ALBUMIN/GLOBULIN RATIO 0.8 (1.0-2.7); ALKALINE PHOSPHATASE 100 U/L (46-116); ASPARTATE AMINO TRANSFERASE 35 U/L (15-37); BILIRUBIN,TOTAL 0.6 MG/DL (0.2-1.0); CREATINE KINASE 300 U/L (26-308)
[2019-04-30 13:24] LABS: ANION GAP 10 mmol/L (5-15); BLOOD UREA NITROGEN 16 mg/dL (7-18); CARBON DIOXIDE 28 MMOL/L (21-32); CHLORIDE 103 MMOL/L (98-107); POTASSIUM 4.4 MMOL/L (3.5-5.1); SODIUM 141 MMOL/L (136-145)
[2019-04-30 14:00] VITALS: BP 121/72
--- NOTE | 2019-04-30 14:15 | Diagnostic Imaging Report ---
Indication: Chest pain Technique: One view of the chest Comparison: 04/02/2019 Findings: Surgical clips project in the left hilar region. Lungs and pleural spaces are clear. The heart size is normal. No significant interim change Impression: No acute process
[2019-04-30] MEDS ORDERED: BACITRACIN15 GM TOPIC (14:17)
[2019-04-30] MEDS ORDERED: FAMOTIDINE20 MG ORAL (14:17)
[2019-04-30] MEDS ORDERED: TYLENOL325 MG ORAL (14:17)
--- NOTE | 2019-04-30 14:17 | Diagnostic Imaging Report ---
Indication: Abdominal pain Technique: Supine view of the abdomen Comparison: 10/15/2018 Findings: There is thoracolumbar scoliotic deformity again demonstrated. There are mild degenerative changes of the lumbar spine. Bowel gas pattern is unremarkable. No masses or unusual calcifications. No significant interim change Impression: No acute process
[2019-04-30] MEDS ORDERED: MYLANTA MAXIMU355 ML PO (14:19)
[2019-04-30] MEDS ORDERED: MULTIVITAMINS1 EAC8 ORAL (14:23)
--- NOTE | 2019-04-30 14:33 | NUR ---
ER DISCHARGE NOTE: Patient is cleared to be discharged per ERMD DR GARCIA, pt is aox4, on room air, with stable vital signs. pt was given dc and prescription instructions, pt was able to verbalize understanding, pt id band and iv site removed without complications. pt is able to ambulate with steady gait. pt took all belongings.
[2019-04-30 14:41] VITALS: BP 121/72
== END 2019-04-30 14:41 | disposition home or self-care (01) ==
LOC: EMR 11:45
DX: R10.84 Generalized abdominal pain (principal); D64.9 Anemia, unspecified; F14.10 Cocaine abuse, uncomplicated; I11.9 Hypertensive heart disease without heart failure; E11.9 Type 2 diabetes mellitus without complications; J44.9 Chronic obstructive pulmonary disease, unspecified; Z88.0 Allergy status to penicillin; Z88.1 Allergy status to other antibiotic agents; Z79.1 Long term (current) use of non-steroidal anti-inflammatories (NSAID)
CPT/HCPCS: 36415; 71045; 74018; 80048; 80053; 81003; 82550; 83690; 84484; 85025; 85610; 85730; 93005; 96361; 96374; 96375; J1200; J1885; J2765; S0028; Z7502; 99284

== ENCOUNTER 2019-07-14 09:12 | Emergency (ER) | payer MEDICAID ==
[~2019-07-14] VITALS: Ht 185.4 cm; Wt 81.2 kg
[~2019-07-14 09:12] MED LIST changes: +ASPIRIN81 MG ORAL; +BACITRACIN15 GM TOPIC; +FAMOTIDINE20 MG ORAL; +MULTIVITAMINS1 EAC8 ORAL; +MYLANTA MAXIMU355 ML PO; +TYLENOL325 MG ORAL
[2019-07-14 09:43] VITALS: BP 157/101
[2019-07-14] MEDS ORDERED: Dicyclomine HCl 10mg/5ml oral soln ORAL ONE (09:45)
--- NOTE | 2019-07-14 09:57 | Emergency Room Report ---
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 Patient states that he was supposed to be seen by a stage driver and have a colonoscopy done but due to the COVID-19 pandemic that was canceled patient states that he is had slight watery bowel movements likely secondary to his milk of magnesia use. Patient denies any fever or chills. He denies any nausea or vomiting. He denies any chest pain or shortness of breath. He denies any dysuria or hematuria. Patient states that he had a hernia repair in his right inguinal region with mesh which was due to prior straining. Allergies: Coded Allergies: PENICILLINS (Verified Allergy, Unknown, 09/09/18) TETRACYCLINE (Verified Allergy, Unknown, 01/16/16) COVID-19 Screening Contact w/high risk pt: No Recent Travel to affected area: No Experienced COVID-19 symptoms?: No Patient History Past Medical History: HTN Past Surgical History: other - tracheo-esophageal fistula repair, hernia repair Social History: Denies: smoking, alcohol use, drug use Nursing Documentation-[facility] Past Medical History: No History, Except For Hx Cardiac Problems: Yes Hx Hypertension: Yes Hx COPD: Yes Hx Diabetes: Yes Hx Cancer: No Hx Gastrointestinal Problems: Yes - Hernia Hx Neurological Problems: Yes - neuropathy Review of Systems All Other Systems: negative except mentioned in HPI Physical Exam Vital Signs Date Time Temp Pulse Resp B/P (MAP) Pulse Ox O2 Delivery O2 Flow Rate FiO2 07/14/19 09:33 98.1 56 16 157/101 (119) 99 Room Air Sp02 EP Interpretation: reviewed, normal General Appearance: no apparent distress, alert, GCS 15, non-toxic Head: normocephalic, atraumatic Eyes: bilateral eye normal inspection, bilateral eye PERRL ENT: hearing grossly normal, normal pharynx, no angioedema, normal voice Neck: full range of motion, supple/symm/no masses Respiratory: chest non-tender, lungs clear, normal breath sounds, speaking full sentences Cardiovascular #1: no edema, bradycardia Gastrointestinal: normal bowel sounds, soft, non-distended, no guarding, no rebound, other - epigatric ttp Rectal: deferred Genitourinary: normal inspection, no CVA tenderness Musculoskeletal: back normal, normal range of motion, gait/station normal, non- tender Neurologic: alert, motor strength/tone normal, oriented x3, sensory intact, responsive, speech normal Psychiatric: judgement/insight normal, memory normal, mood/affect normal, no suicidal/homicidal ideation Skin: no rash Lymphatic: no adenopathy Medical Decision Making Diagnostic Impression: Primary Impression: Abdominal pain Additional Impressions: Hiatal hernia GERD (gastroesophageal reflux disease) ER Course Patient's labs demonstrate no significant acute findings. Urine positive for cocaine. CT demonstrates large hiatal hernia. Patient will have follow-up appointment with his GI doctor once their office is open up again due to the COVID-19 pandemic. Patient will be discharged with Pepcid prescription. Patient given GI cocktail. On reevaluation he states that his bloating and discomfort has improved. After discussing risks and benefits of further diagnostics, treatment plans, as well as indications for and risks of admission , the patient is agreeable to being discharged home. I have explained that their evaluation and treatment in the emergency department today is an important step towards them achieving better health but that their evaluation today is not intended to replace further evaluation and treatment by a physician in their local clinic. I have explained that while the current findings suggest no immediate life threatening emergency they will require further evaluation and treatment by a physician of their choice in their area. They understand that it will be necessary for them to review the final reports of their ED visit with their clinic physician. We have reviewed indications for return to the Emergency Department. I have explained that additional time may need to pass and/or additional testing as an outpatient may be necessary before a definitive diagnosis can be made. They tell me they are willing to follow up as instructed within the timeframe I recommend. They appear to understand what we discussed. Additionally they understand that if they are unable to be seen by an outpatient physician they are welcome, and in fact should, return to the Emergency Department for a repeat evaluation. The patient is stable at time of discharge. Laboratory Tests Test 07/14/19 10:00 White Blood Count 6.8 K/UL (4.8-10.8) Red Blood Count 4.98 M/UL (4.70-6.10) Hemoglobin 13.4 G/DL (14.2-18.0) L Hematocrit 41.4 % (42.0-52.0) L Mean Corpuscular Volume 83 FL (80-99) Mean Corpuscular Hemoglobin 26.9 PG (27.0-31.0) L Mean Corpuscular Hemoglobin Concent 32.4 G/DL (32.0-36.0) Red Cell Distribution Width 15.2 % (11.6-14.8) H Platelet Count 282 K/UL (150-450) Mean Platelet Volume 5.6 FL (6.5-10.1) L Neutrophils (%) (Auto) 57.8 % (45.0-75.0) Lymphocytes (%) (Auto) 27.7 % (20.0-45.0) Monocytes (%) (Auto) 8.0 % (1.0-10.0) Eosinophils (%) (Auto) 4.7 % (0.0-3.0) H Basophils (%) (Auto) 1.8 % (0.0-2.0) Urine Color Yellow Urine Appearance Clear Urine pH 6.5 (4.5-8.0) Urine Specific [place] 1.015 (1.005-1.035) Urine Protein 1+ (NEGATIVE) H Urine Glucose (UA) Negative (NEGATIVE) Urine Ketones Negative (NEGATIVE) Urine Blood Negative (NEGATIVE) Urine Nitrite Negative (NEGATIVE) Urine Bilirubin Negative (NEGATIVE) Urine Urobilinogen Normal MG/DL (0.0-1.0) Urine Leukocyte Esterase 1+ (NEGATIVE) H Urine RBC 0-2 /HPF (0 - 0) H Urine WBC 2-4 /HPF (0 - 0) Urine Squamous Epithelial Cells Occasional /LPF Urine Bacteria Occasional /HPF (NONE) Urine Mucus Few /LPF (NONE/OCC) H Sodium Level 142 MMOL/L (136-145) Potassium Level 4.6 MMOL/L (3.5-5.1) Chloride Level 106 MMOL/L (98-107) Carbon Dioxide Level 29 MMOL/L (21-32) Anion Gap 7 mmol/L (5-15) Blood Urea Nitrogen 13 mg/dL (7-18) Creatinine 1.3 MG/DL (0.55-1.30) Estimated Glomerular Filtration Rate > 60 mL/min (>60) Glucose Level 78 MG/DL (74-106) Calcium Level 9.0 MG/DL (8.5-10.1) Magnesium Level 2.6 MG/DL (1.8-2.4) H Total Bilirubin 0.7 MG/DL (0.2-1.0) Aspartate Amino Transferase (AST) 32 U/L (15-37) Alanine Aminotransferase (ALT) 23 U/L (12-78) Alkaline Phosphatase 93 U/L (46-116) Total Protein 8.7 G/DL (6.4-8.2) H Albumin 4.0 G/DL (3.4-5.0) Globulin 4.7 g/dL Albumin/Globulin Ratio 0.9 (1.0-2.7) L Lipase 126 U/L (73-393) Urine Opiates Screen Negative (NEGATIVE) Urine Barbiturates Screen Negative (NEGATIVE) Phencyclidine (PCP) Screen Negative (NEGATIVE) Urine Amphetamines Screen Negative (NEGATIVE) Urine Benzodiazepines Screen Negative (NEGATIVE) Urine Cocaine Screen Positive (NEGATIVE) H Urine Marijuana (THC) Screen Negative (NEGATIVE) Last Vital Signs Date Time Temp Pulse Resp B/P (MAP) Pulse Ox O2 Delivery O2 Flow Rate FiO2 07/14/19 09:43 56 16 Room Air 07/14/19 09:43 98.1 157/101 99 Disposition: HOME, SELF-CARE Condition: Stable - imrpvoed Scripts Famotidine* (Pepcid 20mg tablet*) 20 Mg Tablet 20 MG ORAL TWICE A DAY, #60 TAB 0 Refills Prov: Amber Contreras M.D. 07/14/19 Additional Instructions: The patient was provided with discharge instructions, notified to follow-up with a primary care doctor and or specialist in the next 24-48 hours, and to return to the ED if they have worsening of their symptoms. Please note that this report is being documented using [employer] technology. This can lead to erroneous entry secondary to incorrect interpretation by the dictating instrument. Amber Contreras M.D. July 14, 2019 09:57
[2019-07-14 10:16] LABS: BASOPHILS % (AUTO) 1.8 % (0.0-2.0); EOSINOPHILS % (AUTO) 4.7 % (0.0-3.0); HEMATOCRIT 41.4 % (42.0-52.0); HEMOGLOBIN 13.4 G/DL (14.2-18.0); LYMPHOCYTES % (AUTO) 27.7 % (20.0-45.0); MEAN CORPUSCULAR VOLUME 83 FL (80-99); NEUTROPHILS % (AUTO) 57.8 % (45.0-75.0); PLATELET COUNT 282 K/UL (150-450); RED BLOOD COUNT 4.98 M/UL (4.70-6.10); RED CELL DISTRIBUTION WIDTH 15.2 % (11.6-14.8); WHITE BLOOD COUNT 6.8 K/UL (4.8-10.8)
[2019-07-14 10:25] LABS: APPEARANCE,URINE CLEAR; BILIRUBIN, URINE NEGATIVE (NEGATIVE); GLUCOSE, URINE (UA) NEGATIVE (NEGATIVE); KETONES,URINE NEGATIVE (NEGATIVE); LEUKOCYTE ESTERASE ,URINE 1+ (NEGATIVE); NITRITE,URINE NEGATIVE (NEGATIVE); PH,URINE 6.5 (4.5-8.0); PROTEIN,URINE 1+ (NEGATIVE); UROBILINOGEN,URINE NORMAL MG/DL (0.0-1.0)
[2019-07-14 10:26] LABS: COLOR,URINE YELLOW
[2019-07-14 10:27] LABS: ANION GAP 7 mmol/L (5-15); BLOOD UREA NITROGEN 13 mg/dL (7-18); CARBON DIOXIDE 29 MMOL/L (21-32); CHLORIDE 106 MMOL/L (98-107); CREATININE 1.3 MG/DL (0.55-1.30); POTASSIUM 4.6 MMOL/L (3.5-5.1); SODIUM 142 MMOL/L (136-145)
[2019-07-14 10:36] LABS: ALANINE AMINOTRANSFERASE 23 U/L (12-78); ALBUMIN/GLOBULIN RATIO 0.9 (1.0-2.7); ALKALINE PHOSPHATASE 93 U/L (46-116); ASPARTATE AMINO TRANSFERASE 32 U/L (15-37); BILIRUBIN,TOTAL 0.7 MG/DL (0.2-1.0)
[2019-07-14] MEDS ORDERED: FAMOTIDINE20 MG ORAL (11:05)
[2019-07-14 11:16] VITALS: BP 143/85
--- NOTE | 2019-07-16 16:30 | Diagnostic Imaging Report ---
EXAM: CT CT Abdomen Pelvis WO Contrast INDICATION: Abdominal pain. History of tracheoesophageal fistula status post surgery. COMPARISON: 09/09/2018 TECHNIQUE: Axial images were obtained through the abdomen and pelvis without intravenous contrast. Sagittal and coronal reformats are generated. All CT scans at this facility are performed using dose modulation techniques as appropriate to a performed exam including the following: automated exposure control with adjustment of the mA and/or kV according to patient size. RADIATION DOSE: CTDIvol: 4.8 mGy DLP: 264.1 mGy-cm Dose information generated by the CT scanner is available in PACS. FINDINGS: Lung bases are clear. There appears to be a hiatal hernia or gastric pull-through noted that the left lung base unchanged. The liver and spleen are homogeneous. There is a tiny layering gallstone. Gallbladder is not distended. The pancreas is unremarkable. Adrenals are normal in morphology. The kidneys are normal in size, shape and axis. Small bowel loops are nondistended. The colon is also nondistended with average amount of stool. The appendix is not visualized. There is no free fluid or free air. There are small lymph nodes along the left para-aortic space. Urinary bladder appears unremarkable. Dextroscoliosis and degenerative changes of the spine noted. IMPRESSION: LARGE HIATAL HERNIA OR GASTRIC PULL-THROUGH AT THE LEFT LUNG BASE UNCHANGED COMPARED TO PRIOR EXAM. TINY LAYERING GALLSTONE. DEXTROSCOLIOSIS AND DEGENERATIVE CHANGES OF THE SPINE.
== END 2019-07-14 11:17 | disposition home or self-care (01) ==
LOC: EMR 09:15
DX: R10.9 Unspecified abdominal pain (principal); K44.9 Diaphragmatic hernia without obstruction or gangrene; K21.9 Gastro-esophageal reflux disease without esophagitis; F14.90 Cocaine use, unspecified, uncomplicated; I11.9 Hypertensive heart disease without heart failure; J44.9 Chronic obstructive pulmonary disease, unspecified; E11.9 Type 2 diabetes mellitus without complications; G62.9 Polyneuropathy, unspecified; Z98.890 Other specified postprocedural states; Z88.0 Allergy status to penicillin; Z88.1 Allergy status to other antibiotic agents
CPT/HCPCS: 36415; 74176; 80053; 80307; 81003; 83690; 83735; 85025; 96374; S0028; Z7502; 99284